=== PATIENT | female | born 1950 | race Caucasian/White ===

== ENCOUNTER → 2024-05-10 | Outpatient (CLI) | payer MEDICARE, SELFPAY ==
[2024-05-10 10:56] LABS: Glucose Estimated Average 111 mg/dL (80-131); Hemoglobin A1C 5.5 % Hgb (4.8-6.0)
[2024-05-10 11:19] LABS: Alanine Aminotransferase 20 U/L (10-49); Albumin, Serum 4.5 gm/dL (3.4-4.8); Albumin/Globulin Ratio 2.3 (1.2-2.2); Alkaline Phosphatase 84 U/L (46-116); Anion Gap 4 (7-16); Aspartate Amino Transferase < 10 U/L (0-34); BUN/Creatinine Ratio 23 Ratio (12-20); Bilirubin,Total 0.3 mg/dL (0.3-1.2); Blood Urea Nitrogen 25 mg/dL (9-23); Calcium 9.8 mg/dL (8.3-10.6); Calcium (Corrected) 9.8 mg/dL (8.5-10.1); Carbon Dioxide 30.5 mMol/L (20.0-31.0); Cardiac Risk Estimate 3.3 RATIO (3.7-5.6); Chloride 104 mMol/L (98-107); Cholesterol 161 mg/dL (132-200); Creatinine (Component) 1.1 mg/dL (0.6-1.3); Glucose 106 mg/dL (74-106); HDL Cholesterol 49 mg/dL (40-60); LDL Cholesterol,Calculated 81 mg/dL (0-130); Osmolality,Calculated 280 (275-295); Potassium 4.3 mMol/L (3.4-5.1); Sodium 138 mMol/L (136-145); Total Protein 6.5 gm/dL (5.7-8.2); Triglycerides 155 mg/dL (30-150); eGFR 53 See Note
== END | disposition home or self-care (01) ==
LOC: COPL 09:08
PROVIDERS: PCP Family Medicine; Referring Provider Family Medicine; Visit Provider Family Medicine
DX: E11.9 Type 2 diabetes mellitus without complications (principal); E78.2 Mixed hyperlipidemia; I10 Essential (primary) hypertension
CPT/HCPCS: 36415; 80053; 80061; 83036

== ENCOUNTER → 2024-08-10 | Outpatient (CLI) | payer MEDICARE, SELFPAY ==
--- NOTE | 2024-08-10 11:04 | XR_ITS ---
Examination: Wrist, right 3 views Technique: Wrist AP, oblique, lateral 3 views Date and time of exam: August 10, 2024 1109 hours INDICATIONS: Right wrist pain beginning 6 months ago no trauma FINDINGS: Significant osteopenia Old bone densities at the ulnar styloid tip No acute fracture 3 mm cyst in the distal navicular Mild narrowing radiocarpal intercarpal and carpometacarpal joints No erosive arthritis IMPRESSION: Old fractures off the ulnar styloid tip No acute fracture Mild narrowing radiocarpal, intercarpal and carpometacarpal joints
--- NOTE | 2024-08-10 11:04 | XR_ITS ---
Examination: Hand, right 3 views Technique: Hand AP, oblique, lateral 3 views Date and time of exam: August 10, 2024 1109 hours INDICATIONS: Right hand first digit pain 6 months FINDINGS: Significant osteopenia Mild diffuse narrowing joints of the wrist and hand Mild osteoarthritis first carpometacarpal joint first metacarpophalangeal joint and interphalangeal joint first digit No fracture No cortical bone destruction or erosive arthritis Small old fractures off the ulnar styloid tip IMPRESSION: Mild osteoarthritis first digit
== END | disposition home or self-care (01) ==
DX: M25.831 Other specified joint disorders, right wrist (principal); M19.041 Primary osteoarthritis, right hand; Z87.81 Personal history of (healed) traumatic fracture
CPT/HCPCS: 73110; 73130

== ENCOUNTER → 2024-09-08 | Outpatient (CLI) | payer MEDICARE, SELFPAY ==
[2024-09-08 10:03] LABS: Collection Type, Urine Clean Catch
[2024-09-08 10:20] LABS: Basophils # (Auto) 0.1 Thou/mm3 (0.0-0.2); Basophils % (Auto) 1 % (0-2.5); Eosinophils # (Auto) 0.3 Thou/mm3 (0.0-0.5); Eosinophils % (Auto) 3 % (0-10); Hematocrit 30.4 % (36.0-46.0); Hemoglobin 9.8 g/dL (12.0-16.0); Immature Granulocytes % (Auto) 0 % (0-0); Immature Granulocytes Auto 0.03 Thou/mm3 (0.00-0.00); Lymphocytes % (Auto) 11 % (10-50); Mean Corpuscular HGB Conc 32.2 g/dl (31.0-37.0); Mean Corpuscular Hemoglobin 30.7 pg (25.0-35.0); Mean Corpuscular Volume 95 fL (80-100); Monocytes # (Auto) 0.7 Thou/mm3 (0.0-0.8); Monocytes % (Auto) 8 % (0-12); Neutrophils % (Auto) 77 % (37-80); Nucleated Red Blood Cell % 0 /100 WBC (0); Platelet Count 359 Thou/mm3 (140-440); RDW Standard Deviation 43.8 fL (36.4-46.3); Red Blood Count 3.19 Miln/mm3 (4.00-5.20)
[2024-09-08 10:28] LABS: Bilirubin,Urine Negative (Negative); Blood,Urine Negative (Negative); Clarity,Urine Clear (Clear/Hazy); Color,Urine Yellow (Lt Yel-Yel); Glucose, Urine Negative (Negative); Ketones,Urine Negative (Negative); Leukocyte Esterase,Urine Negative (Negative); Nitrite,Urine Negative (Negative); PH,Urine 6.5 (5.0-7.0); Protein,Urine Negative (Neg - Trace); RBC,Urine 2 /hpf (0-3); Specific Gravity,Urine 1.022 (1.001-1.035); Squamous Epithelial Cell,Urine 1 /hpf (0-5); Urobilinogen,Urine Negative mg/dL (0.0-1.0); WBC,Urine 2 /hpf (0-5)
[2024-09-08 10:36] LABS: Glucose Estimated Average 105 mg/dL (80-131); Hemoglobin A1C 5.3 % Hgb (4.8-6.0)
[2024-09-08 10:41] LABS: Creatinine MALB Rnd Ur 120 mg/dL (30-125); Microalbumin, Random Urine < 3 mg/L (0-300)
[2024-09-08 10:45] LABS: Alanine Aminotransferase 13 U/L (10-49); Albumin, Serum 3.9 gm/dL (3.4-4.8); Alkaline Phosphatase 57 U/L (46-116); Anion Gap 7 (7-16); Aspartate Amino Transferase 12 U/L (0-34); BUN/Creatinine Ratio 15 Ratio (12-20); Bilirubin,Total 0.3 mg/dL (0.3-1.2); Blood Urea Nitrogen 15 mg/dL (9-23); Calcium 9.2 mg/dL (8.3-10.6); Calcium (Corrected) 9.3 mg/dL (8.5-10.1); Carbon Dioxide 31.7 mMol/L (20.0-31.0); Cardiac Risk Estimate 2.6 RATIO (3.7-5.6); Chloride 102 mMol/L (98-107); Cholesterol 119 mg/dL (132-200); Glucose 98 mg/dL (74-106); HDL Cholesterol 46 mg/dL (40-60); LDL Cholesterol,Calculated 47 mg/dL (0-130); Osmolality,Calculated 282 (275-295); Sodium 141 mMol/L (136-145); Thyroid Stimulating Hormone 3.07 uIU/mL (0.55-4.78); Total Protein 5.9 gm/dL (5.7-8.2); Triglycerides 130 mg/dL (30-150); eGFR 59 See Note
== END | disposition home or self-care (01) ==
LOC: COPL 09:12
PROVIDERS: PCP Family Medicine; Referring Provider Specialist; Visit Provider Specialist
DX: Z00.00 Encounter for general adult medical examination without abnormal findings (principal); E11.22 Type 2 diabetes mellitus with diabetic chronic kidney disease; N18.31 Chronic kidney disease, stage 3a; I10 Essential (primary) hypertension; E78.2 Mixed hyperlipidemia
CPT/HCPCS: 36415; 80053; 80061; 81001; 82043; 82570; 83036; 84443; 85025

== ENCOUNTER 2024-09-13 09:55 | Day surgery (SDC) | payer MEDICARE, SELFPAY ==
[2024-09-12 12:10] VITALS: BMI 36.5
[2024-09-13] VITALS (14 sets, daily range): BP systolic 144–238; BP diastolic 58–135; PULSE 70–112; RESP 14–20; TEMP 36.6–36.7; O2SAT 96–100; BMI 37.0
[2024-09-13] MEDS: SODIUM CHLORIDE 0.9% 500 ML 500 ML 20 ML IV (11:25)
[2024-09-13] MEDS: DiphenhydrAMINE INJ 50 MG/ML VIAL 25 MG IV (11:30)
[2024-09-13] MEDS: fentaNYL CIT INJ 50 mCg/ML AMP 2ML (ASD USE ONLY) IV (11:34)
[2024-09-13] MEDS: hydrALAZINE INJ 20 MG/ML VIAL 10 MG IV ×2 (11:38→11:44)
[2024-09-13] MEDS: MEPERIDINE INJ 25 MG/ML VIAL (ASD USE ONLY) 50 MG IV (11:47)
[2024-09-13] MEDS: MIDAZOLAM INJ 1 MG/ML VIAL 2 ML (ASD USE ONLY) 2 MG IV (11:47)
== END 2024-09-13 12:40 | disposition home or self-care (01) ==
PROVIDERS: PCP Family Medicine; Referring Provider Specialist; Visit Provider Specialist
PROC: 0DBE8ZX Excision of Large Intestine, Via Natural or Artificial Opening Endoscopic, Diagnostic (ICD-10-PCS; CPT 45380; principal; 2024-09-13 10:30)
PROC: (CPT 43239; 2024-09-13 10:30)
DX: K64.9 Unspecified hemorrhoids (principal); K57.30 Diverticulosis of large intestine without perforation or abscess without bleeding
CPT/HCPCS: 45378; A4649; C1769; J0360; J1200; J2175; J2250; J3010; J7040

== ENCOUNTER 2025-02-02 22:46 | Inpatient (IN) | payer MEDICARE, SELFPAY ==
[2025-02-02 22:48] VITALS: BMI 33.9
--- NOTE | 2025-02-02 22:57 | EKG_ITS ---
[facility] Test Date: 2025-02-02 Pat Name: SUSSY LOCKHART Department: Room: - Gender: Female Clinical Documentation Consultant: : 1950 Requested By: ED Temporary Provider Order Number: [id number] Reading MD: ED Temporary Provider Measurements Intervals [place] Rate: 62 P: 37 ID: [id number] QRS: 13 QRSD: 86 T: 38 QT: 421 QTc: 429 Interpretive Statements SINUS RHYTHM POSSIBLE ANTERIOR MYOCARDIAL INFARCTION , PROBABLY OLD [30 ms Q WAVE IN V3/V4, OR R < 0.2 mV IN V4] No previous ECG available for comparison /store/S0/[id number]
[2025-02-02 23:09] VITALS: BP 190/96; BP 199/95; PULSE 63; RESP 23; TEMP 36.6; O2SAT 99
--- NOTE | 2025-02-02 23:17 | XR_ITS ---
Examination: AP chest single view TECHNIQUE: AP portable upright chest single view Date and time: February 02, 2025 11:44 PM, comparison March 31, 2016 INDICATIONS: Chest pain and shortness of breath today FINDINGS: Minimal prominence left ventricle No pneumonia or pulmonary edema The osseous structures are intact Minimal subsegmental atelectasis left lower lung zone IMPRESSION: No active disease
--- NOTE | 2025-02-02 23:18 | PD.EDRME ---
Rapid Medical Screening Exam E Arrival date/time: 02/02/25 22:46 74F with history of HTN presents to ED with 1 day of N/V and chest pressure. Patient states this doesn't feel like heart burn. Chief Complaint: Chest Pain Vital signs: Vital Signs Temperature 97.8 F 02/02/25 23:09 Pulse Rate 63 02/02/25 23:09 Respiratory Rate 23 H 02/02/25 23:09 Blood Pressure 190/96 H 02/02/25 23:09 Pulse Oximetry (%) 99 02/02/25 23:09 Oxygen Delivery Method Room Air 02/02/25 23:09
[2025-02-02 23:39] VITALS: BP 218/70; PULSE 63; RESP 16; TEMP 36.6; O2SAT 97
--- NOTE | 2025-02-02 23:43 | PD.EDCHEST ---
ED Chest Pain RME/HPI General Chief Complaint: Chest Pain Stated Complaint: NAUSEA CHEST TIGHTNESS Time Seen by Provider: 02/02/25 23:35 Arrival date/time: 02/02/25 22:46 RME / HPI RME / HPI narrative: 02/02/25 22:46 74F with history of HTN presents to ED with 1 day of N/V and chest pressure. Patient states this doesn't feel like heart burn. DR. WILCOX MAIN ED EVALUATION: 74 y/o female with Hx of HTN and GERD presents to ED c/o chest tightness just below the rib area and nausea x 12 hours. Denies vomiting. Patient also missed her dose of Metoprolol tonight. No other concerns or complaints expressed at this time. Related Data Home Medications ?Medication ?Instructions ?Recorded ?Confirmed metoprolol succinate 100 mg 100 mg PO QDAY ##0 03/26/14 09/13/24 tablet,extended release 24 hr (Toprol XL) simvastatin 40 mg tablet (Zocor) 20 mg PO HS #0 tabs 03/26/14 09/13/24 famotidine 20 mg tablet (Pepcid) 20 mg PO BID #0 tabs 09/28/16 09/13/24 hydrochlorothiazide 25 mg tablet 25 mg PO QAM #0 tabs 09/28/16 09/13/24 losartan 50 mg tablet 50 mg PO QDAY 11/17/23 09/13/24 amitriptyline 25 mg tablet 25 mg PO QPM 09/13/24 09/13/24 Allergies Allergy/AdvReac Type Severity Reaction Status Date / Time amoxicillin AdvReac Mild Nausea/Vomi Verified 02/02/25 22:56 tiing clavulanic acid AdvReac Mild Nausea/Vomi Verified 02/02/25 22:56 tiing Review of Systems Review of Systems Systems Reviewed: All systems reviewed, normal except as documented Past Medical History Past Medical History CARDIAC: Positive Cardiac Disorders, Hypercholesterolemia and Hypertension RESPIRATORY: Positive Sleep Apnea (NO CPAP RX AT THIS TIME) GASTROINTESTINAL: Positive Gastrointestinal Disorders (DYSPHAGIA) and Gastroesophageal Reflux Disease REPRODUCTIVE: Positive Previous Pregnancies MUSCULOSKELETAL: Positive Musculoskeletal Disorders (CARPAL TUNNEL IN THE PAST) and Carpal Tunnel Syndrome (bilat) ENT: Positive Cataracts ([place]) ENDOCRINE: Positive Diabetes Mellitus Type 2 (PREDIABETES. NO MEDS) HEMATOLOGIC: Positive Blood Disorders and Anemia (takes iron) OTHER HISTORY: Positive Measles and Mumps Surgical History SURGICAL: Positive Eye Surgery (Blethoplasty), Tonsillectomy and Adenoidectomy Social History SMOKING STATUS: Never smoker ED Exam Narrative Physical exam: Generally patient is alert in mild distress secondary to her chest pain, heart regular rate and rhythm, lungs clear to auscultation equal bilaterally, abdomen soft bowel sounds present's and nontender no pulsatile abdominal mass, extremities show no edema, skin is warm pale and dry, neurologic exam no focal motor or sensory deficits cranial nerves II through XII grossly intact Course Course Course Narrative: CXR is ordered for determining the etiology of shortness of breath. Quality Measures none Orders Category Date Time Status EKG (ED ONLY) *Do not use* NOW Care 02/02/25 22:57 Completed EKG (ED ONLY) *Do not use* NOW Care 02/03/25 02:10 Completed Notify provider NOW Care 02/03/25 02:02 Active EKG (ED Only) Stat Exams 02/02/25 22:57 Draft EKG (ED Only) Stat Exams 02/03/25 02:10 Draft XR chest 1V portable Stat Exams 02/02/25 23:17 Completed B-Type Natriuretic Peptide Stat Lab 02/02/25 23:39 Completed CBC Stat Lab 02/02/25 23:39 Completed Comprehensive Metabolic Panel Stat Lab 02/02/25 23:39 Completed Magnesium Stat Lab 02/02/25 23:39 Completed Partial Thromboplastin Time AM DRAW Lab 02/05/25 05:00 Ordered Partial Thromboplastin Time Stat Lab 02/02/25 23:39 Completed Prothrombin Time with INR AM DRAW Lab 02/05/25 05:00 Ordered Prothrombin Time with INR Stat Lab 02/02/25 23:39 Completed Troponin I Stat Lab 02/02/25 23:39 Completed Troponin I Stat Lab 02/03/25 01:18 Completed Aspirin Med 02/02/25 23:17 Discontinued 325 mg PO X1 ONE Heparin Inj Med 02/03/25 02:02 Discontinued 4,000 unit IV X1 ONE Heparin/D5w 25K 250 ML Ivpb [Heparin in D5w Ivpb] Med 02/03/25 02:15 Active 25,000 unit in 250 ml IV 10.81 units/kg/hr Nitroglycerin [Nitrostat 1/150] Med 02/02/25 23:17 Active 0.4 mg SL Q5MIN PRN Ondansetron Inj [Zofran Inj] Med 02/02/25 23:44 Discontinued 4 mg IVP X1 ONE Ondansetron Inj [Zofran Inj] Med 02/03/25 00:36 Discontinued 4 mg IVP X1 ONE Sodium Chloride 0.9% 1000 ml [Ns] 1,000 ml Med 02/02/25 23:45 Discontinued IV 999 mls/hr hydrALAZINE INJ [Apresoline Inj] Med 02/02/25 23:43 Discontinued 10 mg IVP X1 ONE Vital Signs Vital signs: Vital Signs Temperature 97.8 F 02/02/25 23:09 Pulse Rate 63 02/02/25 23:09 Respiratory Rate 23 H 02/02/25 23:09 Blood Pressure 190/96 H 02/02/25 23:09 Pulse Oximetry (%) 99 02/02/25 23:09 Oxygen Delivery Method Room Air 02/02/25 23:09 Chest Pain MDM Narrative MDM Narrative:: Scribe Attestation: Mary Kay Pettit am scribing for and in the presence of Dr. Wilcox. Provider Notation: Although this document has been carefully reviewed, there may still be some phonetic and other typographical errors.? These errors are purely grammatical due to imperfections in the software program and should not be construed in any way to? compromise the substance of the patient's medical care during this visit. I interpreted all labs. First troponin was elevated at 0.3 and second troponin was elevated at 0.6. EKG #1 obtained at 11:06 PM shows normal sinus rhythm at rate of 62 with poor R wave progression in the precordial leads without ST segment change or T wave inversion. EKG #2 obtained at 2:16 AM shows normal sinus rhythm at a rate of 70 with poor R wave progression in the precordial leads without ST segment change or T wave inversion. Patient arrives hypertensive with a systolic blood pressure 218. Patient received hydralazine 10 mg IV which helped decrease systolic blood pressure to 190. Patient received nitroglycerin for chest pain with minimal relief. She also received aspirin 325 mg p.o. Because of the chest pain and the increasing troponins the patient will be diagnosed with a non-STEMI based on the EKGs. She will be bolused with heparin and started on a heparin drip. I have called legal records manager Dr. Cmumins at phone number [phone] and left a message that I need his consultation for this non-STEMI. I have also discussed this case with the hospitalist and the patient will be admitted to the hospital for further treatment and evaluation. Critical care time spent in this patient excluding other billable procedures was 35 minutes. Patient data External records reviewed:: [facility] previous records (No recent ED records available for review.) Clinical information provided by:: patient Social determinants that could affect healthcare access:: none Patient has the following chronic illnesses:: Hypercholesterolemia, Hypertension, Sleep Apnea, Dysphagia, Gastroesophageal Reflux Disease, Carpal Tunnel Syndrome, Cataracts, Anemia How is presenting disease/condition affected by chronic disease/condition?: exacerbated by Evaluation data The following diagnostics were reviewed and interpreted by me:: lab results, radiology exam(s) and EKG tracing(s) Lab and/or radiology exams considered but not ordered:: None Interpretation Summary: RADIOLOGY Chest X-Ray: FINDINGS: Minimal prominence left ventricle No pneumonia or pulmonary edema The osseous structures are intact Minimal subsegmental atelectasis left lower lung zone IMPRESSION: No active disease Medications / Prescriptions Medications or Prescriptions considered but not ordered:: None Medication administrations:: Medication Administration History Heparin Sodium/Dextrose (Heparin In D5w Ivpb) 25,000 unit in 250 mls @ 10.003 mls/hr IV .Q24H [facility]; Protocol Stop: 02/17/25 02:14 Nitroglycerin (Nitroglycerin 0.4 Mg Subl Btl #25) 0.4 mg SL Q5MIN PRN PRN Reason: CHEST PAIN Last Admin: 02/03/25 01:06 Dose: 0.4 1000units Documented By: ROLA Discontinued Medications Aspirin (Aspirin 325 Mg Tablet) 325 mg PO X1 ONE Stop: 02/02/25 23:18 Last Admin: 02/03/25 00:49 Dose: 325 mg Documented By: ROLA Heparin Sodium (Porcine) (Heparin Sod Inj 5000 Unit/Ml Vial) 4,000 unit IV X1 ONE; Protocol Stop: 02/03/25 02:03 Hydralazine HCl (Hydralazine Inj 20 Mg/Ml Vial) 10 mg IVP X1 ONE Stop: 02/02/25 23:44 Last Admin: 02/03/25 00:08 Dose: 10 mg Documented By: ROLA Sodium Chloride (Ns) 1,000 mls @ 999 mls/hr IV .Q1H1M ONE Stop: 02/03/25 00:45 Last Infusion: 02/03/25 01:12 Dose: Infused Documented By: Admin: 02/03/25 00:11 Dose: 999 mls/hr Documented By: MM Ondansetron HCl (Ondansetron Inj 2 Mg/Ml Inj 2 Ml) 4 mg IVP X1 ONE; Protocol Stop: 02/02/25 23:45 Last Admin: 02/03/25 00:06 Dose: 4 mg Documented By: ROLA Ondansetron HCl (Ondansetron Inj 2 Mg/Ml Inj 2 Ml) 4 mg IVP X1 ONE; Protocol Stop: 02/03/25 00:37 Last Admin: 02/03/25 00:46 Dose: 4 mg Documented By: ROLA See above Consultations Consultation(s) initiated? (list below): Yes Diagnosis Chest Pain Differential Diagnosis: fracture of rib, pneumothorax, stable angina, unstable angina pectoris, atypical chest pain, st elevation myocardial infarction, costochondritis, chest pain and biliary colic Most likely diagnosis given after review of the tests above:: Non-STEMI Admission Indicated Admission indicated?: indicated Admission Request Was there a request for admission?: Yes Admission Attestation Admission request attestation: Discussed case with [] from Hospitalist service regarding admission. Discussed patients ED course, exam findings, labs, and radiology results. The Hospitalist [agrees,declines] to accept the patient for admission. Disposition Plan Disposition Plan: Admit Critical Care Time Critical Care Time Total Critical Care Time (min.): 35 Attestation: Excluding other billable procedures Discharge Plan Plan Patient Disposition: Admit Acute Care w/in Hospital Prescriptions/Referrals Prescriptions/Med Rec: No Action metoprolol succinate [Toprol XL] 100 MG tablet extended release 24 hr 100 mg PO QDAY Qty: 0 simvastatin [Zocor] 40 MG tablet 20 mg PO HS Qty: 0 famotidine [Pepcid] 20 MG tablet 20 mg PO BID Qty: 0 Patient Comments: TO SUPPRESS GASTRIC ACID SECRETION hydrochlorothiazide 25 MG tablet 25 mg PO QAM Qty: 0 amitriptyline 25 mg tablet 25 mg PO QPM Patient Comments: TAKE 1 TABLET BY MOUTH AT BEDTIME losartan 50 mg tablet 50 mg PO QDAY Patient Comments: TAKE 1 TABLET BY MOUTH ONCE DAILY FOR HIGH BLOOD PRESSURE Problem List Clinical Impression: Non-ST elevated myocardial infarction (non-STEMI), Poorly-controlled hypertension Patient/Caregiver Discharge Instructions Print Language: [place]an Stand Alone Forms: [employer] Award Info., Patient Portal Info Letter
[2025-02-02 23:52] LABS: Basophils # (Auto) 0.1 Thou/mm3 (0.0-0.2); Basophils % (Auto) 0 % (0-2.5); Eosinophils # (Auto) 0.0 Thou/mm3 (0.0-0.5); Eosinophils % (Auto) 0 % (0-10); Hematocrit 33.8 % (36.0-46.0); Hemoglobin 10.9 g/dL (12.0-16.0); Immature Granulocytes Auto 0.07 Thou/mm3 (0.00-0.00); Lymphocytes # (Auto) 0.7 Thou/mm3 (1.0-4.8); Lymphocytes % (Auto) 4 % (10-50); Mean Corpuscular HGB Conc 32.2 g/dl (31.0-37.0); Mean Corpuscular Hemoglobin 30.3 pg (25.0-35.0); Mean Corpuscular Volume 94 fL (80-100); Monocytes # (Auto) 0.5 Thou/mm3 (0.0-0.8); Monocytes % (Auto) 3 % (0-12); Neutrophils # (Auto) 15.9 Thou/mm3 (1.8-7.7); Neutrophils % (Auto) 92 % (37-80); Nucleated Red Blood Cell # 0.00 Thou/mm3 (0.00-0.00); Nucleated Red Blood Cell % 0 /100 WBC (0); Platelet Count 467 Thou/mm3 (140-440); RDW Standard Deviation 45.0 fL (36.4-46.3); Red Blood Count 3.60 Miln/mm3 (4.00-5.20); White Blood Count 17.2 Thou/mm3 (3.6-11.0)
[2025-02-03] VITALS (16 sets, daily range): BP systolic 120–195; BP diastolic 55–84; PULSE 66–82; RESP 14–26; TEMP 36.3–37.1; O2SAT 95–100; BMI 37.2; BMI 37.3
[2025-02-03 00:04] LABS: INR 0.9 (0.9-1.3); Partial Thromboplastin Time 23.6 Seconds (22.0-36.0); Prothrombin Time 10.4 Seconds (9.0-12.2)
[2025-02-03] MEDS: ONDANSETRON INJ 2 MG/ML INJ 2 ML 4 MG IVP ×3 (00:06→09:44)
[2025-02-03] MEDS: hydrALAZINE INJ 20 MG/ML VIAL 10 MG IVP ×2 (00:08→10:59)
[2025-02-03] MEDS: SODIUM CHLORIDE 0.9% 1000 ML 1,000 ML 999 ML IV (00:11)
[2025-02-03 00:17] LABS: B-Type Natriuretic Peptide 236 pg/mL (0-100)
[2025-02-03 00:24] LABS: Alanine Aminotransferase < 7 U/L (10-49); Albumin, Serum 4.4 gm/dL (3.4-4.8); Albumin/Globulin Ratio 2.2 (1.2-2.2); Alkaline Phosphatase 77 U/L (46-116); Anion Gap 12 (7-16); Aspartate Amino Transferase 13 U/L (0-34); BUN/Creatinine Ratio 18 Ratio (12-20); Bilirubin,Total 0.3 mg/dL (0.3-1.2); Blood Urea Nitrogen 18 mg/dL (9-23); Calcium 10.2 mg/dL (8.3-10.6); Calcium (Corrected) 10.2 mg/dL (8.5-10.1); Carbon Dioxide 28.0 mMol/L (20.0-31.0); Chloride 98 mMol/L (98-107); Creatinine (Component) 1.0 mg/dL (0.6-1.3); Estimated Creatinine Clearance 55.5 mL/min (>60); Globulin 2.0 gm/dL (2.3-3.5); Glucose 126 mg/dL (74-106); Magnesium 1.7 mg/dL (1.6-2.6); Osmolality,Calculated 279 (275-295); Potassium 3.8 mMol/L (3.4-5.1); Sodium 138 mMol/L (136-145); Total Protein 6.4 gm/dL (5.7-8.2); eGFR 59 See Note
[2025-02-03 00:29] LABS: Troponin I 0.300 ng/mL (0.0-0.045)
[2025-02-03] MEDS: NITROGLYCERIN 0.4 MG SUBL BTL #25 SL (01:06)
[2025-02-03 01:54] LABS: Troponin I 0.615 ng/mL (0.0-0.045)
--- NOTE | 2025-02-03 02:10 | EKG_ITS ---
[facility] Test Date: 2025-02-03 Pat Name: SUSSY LOCKHART Department: Room: - Gender: Female Deaf/Hard Of Hearing Specialist: : 1950 Requested By: Vamsi Moy Order Number: [id number] Reading MD: Vamsi Moy Measurements Intervals [place] Rate: 70 P: 43 DC: 186 QRS: 20 QRSD: 89 T: 39 QT: 433 QTc: 467 Interpretive Statements SINUS RHYTHM WITH OCCASIONAL SUPRAVENTRICULAR PREMATURE COMPLEXES LOW QRS VOLTAGE IN PRECORDIAL LEADS [QRS DEFLECTION < 1.0 mV IN CHEST LEADS] POSSIBLE ANTERIOR MYOCARDIAL INFARCTION , PROBABLY OLD [30 ms Q WAVE IN V3/V4, OR R < 0.2 mV IN V4] Compared to ECG 02/02/2025 23:06:20 Low QRS voltage now present Myocardial infarct finding still present /store/S0/[id number]
[2025-02-03] MEDS: MORPHINE SULF INJ 10 MG/ML VIAL 4 MG IVP (02:35)
[2025-02-03] MEDS: HEPARIN SOD INJ 5000 UNIT/ML VIAL 4000 UNIT IV (02:37)
[2025-02-03] MEDS: Heparin/D5w 25K 250 ML Ivpb 25,000 UNIT/250 ML BAG 10.003 UNIT IV (02:41)
--- NOTE | 2025-02-03 03:43 | ESHP_ITS ---
<Statement entered by Dylan Kaye MD - 02/03/25 07:53> I have discussed and was present for the essential components of the history, physical examination, diagnosis, and treatment plan with the resident. I agree with the patient's care as documented by the resident and amended herein by me. Dylan Kaye MD FACP. Documentation for date of: 02/03/25 HPI History of Present Illness History of present illness: CC: Chest Pain Patient is a 74-year-old female with a past medical history of hypertension, hyperlipidemia, and GERD who presented to the emergency room chief complaint of chest pain 02/02/2025. Patient stated chest pain started as chest pressure at the sternal region nonradiating, then progressed to tightness that is a dull ache. Pain is constant occurring at rest and with exertion. Patient denied pleuritic pain. Denied MSK pain. Patient also noted to have a systolic blood pressure 192 after checking her blood pressure. Patient stated she had already taken her hydrochlorothiazide and losartan for that day. Patient also complaining of clammy feeling. Single episode of emesis that was transparent in the ER approximately 240 cc. Patient denied previous chest pressure. Not the same feeling as GERD. Patient denied any recent sick contacts. Patient denied chills or fevers. Denied diarrhea or abdominal tenderness patient denied dysuria or increased frequency. Never smoker. No illicit drug use. Denied cardiac history. Mild improvement with morphine. ER Course: Vitals: 190/96, HR 63 RR 23 on room air CBC 17.2, hemoglobin 10.9, hematocrit 33.8, MCV 94, platelets 467 (high) INR 0.9 CMP Na 138 Na 3.8 Chloride 98, bicarb 28.0, BUN 18, Cr 1.0 GFR 59 Ca 10.2 (H) Mg 1.7 0.300, 0.615 BNP [address] Elevation, no specic R changes Chest X-ray: No acitve disease Zofran, hydralazine 10 mg IVX1, NS bolus X 1, Asprin 325 mg, Nitroglyceirn 0.4 mg sl, Heparin drip PMH: hypertension, hyperlipidemia, esophageal strictures, and GERD Medication: Amitriptyline 25 mg PO HS (for headaches by Dr. Canales), Famotidien, Hydrocholorothiazide, Losartan 50 mg qday, Metoprolol Succinate 100 mg PO, Simvastatin 40 mg PO HS Surgeries: Carpal tunnel surgery Tonsillectomy, Facial Radiation secondary to squamous cell cancer Allerigies: grass/pollen Social: denied alcohol use, never smoker, denied illicit drug use Family History: Mother Stroke X 2 and Father Parkinson Disease Patient is being admitted for chest pain and Troponemia. Review of Systems Review of Systems Narrative Review of Systems: General appearance: YES Headache, NO weight change, NO fatigue, NO weakness, NO fever, NO chills, NO night sweats, No cough Skin: NO rash, NO itching, NO sores, NO moles HEENT: NO Trauma, NO nausea, NO vomiting, NO visual changes, NO blurry vision, NO double vision, NO tinnitus, NO vertigo, NO ear discharge, NO rhinorrhea, NO stuffiness, NO sneezing, NO allergy, NO epistaxis. NO Hoarseness, NO sore throat, NO swollen neck. Cardiac: Yes CHEST Pain, NO Palpitations, NO dyspnea on exertion, NO orthopnea, NO paroxysmal nocturnal dyspnea, NO edema Respiratory: NO Shortness of Breath, NO Wheezing, NO Cough, NO Sputum, NO hemoptysis GI:NO appetite, NO nausea, NO vomiting, NO dysphagia, NO changes in bowel frequency, NO stool color, NO diarrhea, NO constipation, NO hemetemesis, NO hemorrhoids, NO melena, NO hematechezia, NO abdominal pain, NO jaundice Renal: NO frequency, NO hesitancy, NO urgency, NO hematuria, NO nocturia, NO incontinence MSK: NO muscle weakness, NO gout, NO arthritis, NO muscle stiffness Neuro: NO headaches, NO tremors, NO weakness, NO paralysis, NO seizures, NO loss of consciousness, NO numbness. Hem: NO anemia, NO easy bruising/bleeding, NO petechiae, NO purpura Endo: NO heat/cold intolerance, NO excessive sweating, NO polyuria, NO polydipsia, NO polyphagia, NO thyroid problems, NO diabetes Pysch: NO mood, NO anxiety, NO depression Exam Vital Signs Temp Pulse Resp BP Pulse Ox O2 Del Method 98.8 F 68 15 166/64 H 100 Room Air 02/03/25 01:02/03/25 01:02/03/25 01:02/03/25 01:02/03/25 01:02/03/25 01:29 Narrative Exam General Appearance: Alert & Oriented X3, well-nourished female who is lying in bed in mild distress HEENT: Skull symmetrical and atraumatic. Conjunctivae pin and moist. Pupils equal, round, reactive to light and accommodation (PERRL). External ear without lesion or discharge. Straight, nares patient, mucosa pink, no discharge. No thyroid nodule appreciated. No cervical lymphadenopathy. Cardio: Normal Rate and Rhythm with S1 and S2 heart sounds. No murmurs or extra heart sounds auscultated. No bruits on carotid auscultation. No peripheral edema or cyanosis. Lungs: Symmetric with good expansion. Chest and back non-tender. Breath sounds vesicular without crackles, wheezing or rhonchi Abdomen: Non-tender, Non-distended, Normal Reactive Bowel Sounds Neuro: Alert, cooperative, oriented to person, place, and time. Speech clear. CN grossly intact. Upper motor strength 5/5 and Lower motor strength 5/5. Sensation intact. Results: Labs 02/02/25 23:39 02/02/25 23:39 Labs: Short CBC 02/02/25 Range/Units 23:39 WBC 17.2 H (3.6-11.0) Thou/mm3 Hgb 10.9 L (12.0-16.0) g/dL Hct 33.8 L (36.0-46.0) % Plt Count 467 H (140-440) Thou/mm3 BMP 02/02/25 23:39 Sodium 138 Potassium 3.8 Chloride 98 Carbon Dioxide 28.0 BUN 18 Creatinine 1.0 Glucose 126 H Calcium 10.2 Cardiac Enzymes 02/02/25 02/03/25 Range/Units 23:39 01:18 Troponin I 0.300 H* 0.615 H* D (0.0-0.045) ng/mL Liver Function 02/02/25 Range/Units 23:39 Total Bilirubin 0.3 (0.3-1.2) mg/dL AST 13 (0-34) U/L ALT < 7 L (10-49) U/L Alkaline Phosphatase 77 (46-116) U/L Albumin 4.4 (3.4-4.8) gm/dL Quality Measures Quality Measures none Advance care planning discussed with:: patient Medications Home Medications and Allergies Home Medications ?Medication ?Instructions ?Recorded ?Confirmed ?Type metoprolol succinate 100 mg 100 mg PO QDAY ##0 4 09/13/24 History tablet,extended release 24 hr (Toprol XL) simvastatin 40 mg tablet (Zocor) 20 mg PO HS #0 tabs 1 09/13/24 History famotidine 20 mg tablet (Pepcid) 20 mg PO BID #0 tabs 09/28/16 09/13/24 History hydrochlorothiazide 25 mg tablet 25 mg PO QAM #0 tabs 09/28/16 09/13/24 History losartan 50 mg tablet 50 mg PO QDAY 11/17/2309/13 History amitriptyline 25 mg tablet 25 mg PO QPM 09/13/2409/13 History Allergies Allergy/AdvReac Type Severity Reaction Status Date / Time amoxicillin AdvReac Mild Nausea/Vomi Verified 02/02/25 22:56 tiing clavulanic acid AdvReac Mild Nausea/Vomi Verified 02/02/25 22:56 tiing Visit Medications Acetaminophen (Acetaminophen 325 Mg Tablet) 650 mg PO Q6H PRN PRN Reason: mild pain 1-3 or Fever >100.3 Stop: 03/05/25 03:24 Hydrocodone Bitart/Acetaminophen (Hydrocodone/Apap 5/325 Tablet) 1 tab PO Q4HR PRN PRN Reason: PAIN SCALE 4-6 (Moderate Stop: 02/08/25 03:24 Aspirin (Aspirin Ec 81 Mg Tabec) 81 mg PO QDAY [facility] Stop: 03/05/25 08:59 Atorvastatin Calcium (Atorvastatin Calcium 20 Mg Tablet) 80 mg PO HS [facility] Stop: 03/05/25 03:34 Heparin Sodium/Dextrose (Heparin In D5w Ivpb) 25,000 unit in 250 mls @ 10.003 mls/hr IV .Q24H [facility]; Protocol Stop: 02/17/25 02:14 Last Admin: 02/03/25 02:41 Dose: 10.81 units/kg/hr, 10.003 mls/hr Metoprolol Succinate (Metoprolol Succinate Xl 25 Mg Tabcr) 100 mg PO QDAY [facility] Stop: 03/05/25 08:59 Morphine Sulfate (Morphine Sulf Inj 10 Mg/Ml Vial) 2 mg IVP Q4HR PRN PRN Reason: PAIN SCALE 7-10 (Severe Stop: 02/08/25 03:24 Nitroglycerin (Nitroglycerin 0.4 Mg Subl Btl #25) 0.4 mg SL Q5MIN PRN PRN Reason: CHEST PAIN Last Admin: 02/03/25 01:06 Dose: 0.4 1000units Ondansetron HCl (Ondansetron Inj 2 Mg/Ml Inj 2 Ml) 4 mg IVP Q6H PRN; Protocol PRN Reason: NAUSEA OR VOMITING Stop: 03/05/25 03:24 Sennosides (Senna Tablet) 1 tab PO QDAY [facility]ANS; Protocol Stop: 03/05/25 08:59 Discontinued Medications Aspirin (Aspirin 325 Mg Tablet) 325 mg PO X1 ONE Stop: 02/02/25 23:18 Last Admin: 02/03/25 00:49 Dose: 325 mg Heparin Sodium (Porcine) (Heparin Sod Inj 5000 Unit/Ml Vial) 4,000 unit IV X1 ONE; Protocol Stop: 02/03/25 02:03 Last Admin: 02/03/25 02:37 Dose: 4,000 unit Hydralazine HCl (Hydralazine Inj 20 Mg/Ml Vial) 10 mg IVP X1 ONE Stop: 02/02/25 23:44 Last Admin: 02/03/25 00:08 Dose: 10 mg Sodium Chloride (Ns) 1,000 mls @ 999 mls/hr IV .Q1H1M ONE Stop: 02/03/25 00:45 Last Infusion: 02/03/25 01:12 Dose: Infused Morphine Sulfate (Morphine Sulf Inj 10 Mg/Ml Vial) 4 mg IVP X1 ONE Stop: 02/03/25 02:30 Last Admin: 02/03/25 02:35 Dose: 4 mg Ondansetron HCl (Ondansetron Inj 2 Mg/Ml Inj 2 Ml) 4 mg IVP X1 ONE; Protocol Stop: 02/02/25 23:45 Last Admin: 02/03/25 00:06 Dose: 4 mg Ondansetron HCl (Ondansetron Inj 2 Mg/Ml Inj 2 Ml) 4 mg IVP X1 ONE; Protocol Stop: 02/03/25 00:37 Last Admin: 02/03/25 00:46 Dose: 4 mg Assessment & Plan Plan Patient is a 74-year-old female with a past medical history of hypertension, hyperlipidemia, and GERD who was admitted for chest pain and troponinemia. #Chest pain #Troponinemia #Hyperlipidemia Patient presented with new onset of chest pain substernal region radiate likely NSTEMI type II given hypertensive urgency versus NSTEMI type I versus ACS less likely the elevation noted x 2 EKGs vs GERD Diagnostics: EKG: No ST elevation Troponin 0.3, repeat troponin 0.615 point Plan -Heparin drip -Aspirin 81 mg daily, Morphine 2 mg every 4 hours -Nitroglycerin sublingual - Metoprolol succinate 100 mg p.o. daily -Echo - Trend troponins - A1c, lipid, mag and Phos - Consult cardiology, Dr. Cummins, appreciate recommendations - Currently n.p.o. #Hypertensive emergency #Hypertension Patient presented with hypertensive emergency with endorgan damage of elevated troponins. Patient adherent to medication, systolic blood pressure during office visits with PCP, Dr Fernando, 140. Plan - Holding losartan and hydrochlorothiazide - Resume metoprolol succinate XL 100 mg p.o. daily, AM - Consider renal ultrasound #Leukocytosis Leukocytosis noted with a WBC count of 17.2 likely reactive. No fever noted patient denied chills. Patient denied dysuria. Patient denied cough or recent sick contacts with a chest x-ray that was negative for pneumonia Plan - Continue to monitor WBC count and temperature #Hyperlipidemia Patient has a past medical history of hyperlipidemia and home medication of simvastatin 40 mg p.o. at bedtime. Plan -Start atorvastatin 80 mg p.o. at bedtime given troponinemia - Holding simvastatin 2 mg p.o. at bedtime home medication - Lipid panel in a.m. #Normocytic anemia Anemia noted previous labs, hemoglobin ranging from 11-9.6. Denies shortness of breath. Denied alysia blood. Plan - No acute intervention - Consider B12, folate, iron panel #Headaches Patient has a past medical history of headaches that started on amitriptyline. Plan -Holding off amitriptyline until medication conciliation Health Maintenance: Disp: Pt is currently admitted to floors for further management of chest pain and hypertensive urgency, awaiting cardiology consult and echo FEN: NPO DVT: heparin drip Code: Full code - The patient's plan was discussed with attending Dr. Vargas Reyes MD PGY2 Internal Medicine
[2025-02-03] MEDS: Magnesium Sulfate 2 GM Ivpb 2 GM/50 ML BAG IV (04:45)
[2025-02-03] MEDS: ATORVASTATIN CALCIUM 20 MG TABLET 80 MG PO ×2 (05:01→20:09)
[2025-02-03 05:08] LABS: Basophils # (Auto) 0.0 Thou/mm3 (0.0-0.2); Basophils % (Auto) 0 % (0-2.5); Eosinophils # (Auto) 0.0 Thou/mm3 (0.0-0.5); Eosinophils % (Auto) 0 % (0-10); Hematocrit 33.2 % (36.0-46.0); Hemoglobin 10.7 g/dL (12.0-16.0); Immature Granulocytes Auto 0.10 Thou/mm3 (0.00-0.00); Lymphocytes # (Auto) 0.7 Thou/mm3 (1.0-4.8); Lymphocytes % (Auto) 4 % (10-50); Mean Corpuscular HGB Conc 32.2 g/dl (31.0-37.0); Mean Corpuscular Hemoglobin 30.1 pg (25.0-35.0); Mean Corpuscular Volume 93 fL (80-100); Monocytes # (Auto) 0.5 Thou/mm3 (0.0-0.8); Monocytes % (Auto) 3 % (0-12); Neutrophils # (Auto) 17.2 Thou/mm3 (1.8-7.7); Neutrophils % (Auto) 93 % (37-80); Nucleated Red Blood Cell # 0.00 Thou/mm3 (0.00-0.00); Nucleated Red Blood Cell % 0 /100 WBC (0); Platelet Count 380 Thou/mm3 (140-440); RDW Standard Deviation 44.8 fL (36.4-46.3); Red Blood Count 3.56 Miln/mm3 (4.00-5.20); White Blood Count 18.5 Thou/mm3 (3.6-11.0)
[2025-02-03 05:24] LABS: Alcohol, Urine Negative (Negative); Amphetamine/Methamp Scrn,U Negative (Negative); Barbiturate Screen,Urine Negative (Negative); Benzodiazepines Screen,Urine Negative (Negative); Benzoylecgonine Screen, Ur Negative (Negative); Fentanyl Screen,Urine Negative (Negative); Opiate Screen,Urine Positive (Negative); THC Screen,Urine Negative (Negative)
[2025-02-03 05:39] LABS: Partial Thromboplastin Time 54.3 Seconds (22.0-36.0)
[2025-02-03 05:43] LABS: Glucose Estimated Average 117 mg/dL (80-131); Hemoglobin A1C 5.7 % Hgb (4.8-6.0)
[2025-02-03 06:02] LABS: Alanine Aminotransferase 9 U/L (10-49); Albumin, Serum 4.0 gm/dL (3.4-4.8); Albumin/Globulin Ratio 2.0 (1.2-2.2); Alkaline Phosphatase 72 U/L (46-116); Anion Gap 10 (7-16); Aspartate Amino Transferase 12 U/L (0-34); BUN/Creatinine Ratio 21 Ratio (12-20); Bilirubin,Total 0.2 mg/dL (0.3-1.2); Blood Urea Nitrogen 17 mg/dL (9-23); Calcium 9.6 mg/dL (8.3-10.6); Calcium (Corrected) 9.6 mg/dL (8.5-10.1); Carbon Dioxide 29.8 mMol/L (20.0-31.0); Cardiac Risk Estimate 3.4 RATIO (3.7-5.6); Chloride 99 mMol/L (98-107); Cholesterol 168 mg/dL (132-200); Creatinine (Component) 0.8 mg/dL (0.6-1.3); Estimated Creatinine Clearance 69.4 mL/min (>60); Globulin 2.0 gm/dL (2.3-3.5); Glucose 128 mg/dL (74-106); HDL Cholesterol 49 mg/dL (40-60); LDL Cholesterol,Calculated 96 mg/dL (0-130); Magnesium 1.2 mg/dL (1.6-2.6); Osmolality,Calculated 281 (275-295); Potassium 3.7 mMol/L (3.4-5.1); Sodium 139 mMol/L (136-145); Thyroid Stimulating Hormone 2.32 uIU/mL (0.55-4.78); Total Protein 6.0 gm/dL (5.7-8.2); Triglycerides 113 mg/dL (30-150); eGFR > 60 See Note
[2025-02-03 06:04] LABS: Troponin I 0.953 ng/mL (0.0-0.045)
[2025-02-03] MEDS: HYDROcodone/APAP 5/325 TABLET 1 TAB PO ×2 (07:28→19:13)
[2025-02-03] MEDS: ASPIRIN EC 81 MG TABEC PO (08:46)
[2025-02-03] MEDS: METOPROLOL SUCCINATE XL 25 MG TABCR 100 MG PO (08:46)
[2025-02-03] MEDS: Magnesium Sulfate 4 GM Ivpb 4 GM/50 ML BAG IV (08:46)
[2025-02-03] MEDS: LOSARTAN POTASSIUM 25 MG TABLET PO ×2 (08:47→10:54)
--- NOTE | 2025-02-03 10:06 | EKG_ITS ---
[facility] Test Date: 2025-02-03 Pat Name: SUSSY LOCKHART [facility] Gender: Female [employer] Operator: ROGER : 1950 Requested By: Chandu Carlos Order Number: [id number] Reading MD: Chandu Carlos Measurements Intervals [place] Rate: 69 P: 40 VA: 169 QRS: 15 QRSD: 87 T: 20 QT: 439 QTc: 471 Interpretive Statements SINUS RHYTHM LOW QRS VOLTAGE IN PRECORDIAL LEADS POSSIBLE ANTERIOR MYOCARDIAL INFARCTION , PROBABLY OLD Compared to ECG 02/03/2025 02:16:39 No significant changes /store/S0/[id number].pdf
[2025-02-03 10:08] LABS: Troponin I 0.845 ng/mL (0.0-0.045)
[2025-02-03 10:53] LABS: Partial Thromboplastin Time 34.2 Seconds (22.0-36.0)
[2025-02-03] MEDS: HEPARIN SOD INJ 5000 UNIT/ML VIAL 4000 UNIT IVP (11:38)
--- NOTE | 2025-02-03 12:07 | ESPR_ITS ---
<Statement entered by Chandu Carlos MD - 02/03/25 17:17> Patient was seen and examined at bedside. I agree on the assessment and plan on this note as documented by resident Kiara Smith MD PGY1. 74-year-old female with past medical history as below, admitted for ACS workup, had uptrending troponin, was given aspirin loading dose, started on heparin drip and aspirin. Was evaluated by cardiology today, does have moderate risk factors for CAD, presents with atypical chest pain considering patient has diabetes though there is some element of possible NSTEMI type II considering patient had hypertensive emergency as well. Evaluated by cardiology today, cardiology recommends loading dose Plavix today, patient will be started on Plavix daily, cardiology planning for cardiac catheterization on Wednesday, will keep n.p.o. after midnight tomorrow. Patient noted to have asymptomatic bacteriuria, cardiology started patient on ceftriaxone, will continue. Disposition telemetry pending cardiac catheterization on Wednesday, cardiology following. Case discussed with attending Dr. Obie Carlos MD PGY-2 <Statement entered by Peri Ragland MD - 02/03/25 15:52> I Peri Ragland MD reviewed the note and agree with the resident's assessment & plan with modifications/additions/exceptions as below. I have personally reviewed labs, imaging, home meds/prior records, examined the patient, formulated and discussed management plan with the IM team. A 74-year-old female with history of HTN, DM presented to ED with chest discomfort, nausea, vomiting and noted to have atypical chest pain concerning for ACS and hypertensive emergency. Troponin mildly elevated though flat he would EKG nonischemic, CXR unremarkable. Overnight following admission heparin was initiated for anticoagulation due to concerns for NSTEMI. Patient has uncontrolled hypertension leading to hypertensive emergency with endorgan damage likely causing type II OK however patient has significant risk factors and is moderate risk of having CAD. Will consult cardiology regarding further evaluation for CAD. Continue aspirin, statin, losartan, metoprolol, will discontinue heparin drip after 24 hours. Obtain echocardiogram, aggressive electrolyte replacement, use IV hydralazine as needed for optimal blood pressure control. In the setting of leukocytosis, will get further infectious workup including UA. Will monitor off antibiotics for now as leukocytosis is likely reactive in nature due to endorgan dysfunction. Repeat CBC, CMP, CRP, procalcitonin, ESR. Continue to monitor on telemetry overnight. Documentation for date of: 02/03/25 Subjective Subjective Interval history: 74-year-old female past med history significant for hypertension, hyperlipidemia, GERD, presents to the ED with with pressure-like chest pain and nausea. Admitted for atypical chest pain and high troponin. The patient was seen and examined at bedside. Labs reviewed, troponin downtrending. Vitals are reviewed, BP is elevated 195/76 administered metoprolol succinate and losartan for blood pressure management. Patient currently endorses intermittent pressure like chest pain with no palpitation, dizziness, shortness of breath, double vision, numbness, and weakness. Endorses nausea for which she received Zofran. Exam Vital Signs Temp Pulse Resp BP Pulse Ox O2 Del Method O2 Flow Rate 97.4 F 68 19 195/76 H 97 Nasal Cannula 1 02/03/25 08:00 02/03/25 10:59 02/03/25 08:00 02/03/25 10:59 02/03/25 08:00 02/03/25 08:00 02/03/25 08:00 Narrative Exam Physical Exam General: Awake and in no acute distress. Conversational and non-toxic appearing. HEENT: Normocephalic, atraumatic, mucous membranes moist. Heart: Regular rate and rhythm, normal S1 and S2, no murmurs. Lungs: Clear to auscultation with no wheezing or crackles. Abdomen: Soft, nondistended, nontender, positive bowel sounds. ?No guarding or rebound tenderness. Neurologic: Alert and oriented x3, no gross neurological deficit, and patient able to move all 4 extremities. Extremities: No edema. Skin: No rash or ecchymoses. Objective Labs 02/03/25 04:45 02/03/25 04:45 Labs: Laboratory Results - last 24 hr 02/02/25 02/03/25 02/03/25 23:39 01:18 04:45 WBC 17.2 H 18.5 H RBC 3.60 L 3.56 L Hgb 10.9 L 10.7 L Hct 33.8 L 33.2 L MCV 94 93 MCH 30.3 30.1 MCHC 32.2 32.2 RDW Std Deviation 45.0 44.8 Plt Count 467 H 380 D Neut % (Auto) 92 H 93 H Lymph % (Auto) 4 L 4 L [place] % (Auto) 3 3 Eos % (Auto) 0 0 Baso % (Auto) 0 0 Neut # (Auto) 15.9 H 17.2 H Lymph # (Auto) 0.7 L 0.7 L [place] # (Auto) 0.5 0.5 Eos # (Auto) 0.0 0.0 Baso # (Auto) 0.1 0.0 Immature Gran # (Auto) 0.07 H 0.10 H Absolute Nucleated RBC 0.00 0.00 Immature Gran % 0 1 H Nucleated RBC % 0 0 PT 10.4 INR 0.9 APTT 23.6 54.3 H D Sodium 138 139 Potassium 3.8 3.7 Chloride 98 99 Carbon Dioxide 28.0 29.8 Anion Gap 12 10 BUN 18 17 Creatinine 1.0 0.8 Estim Creat Clear Calc 55.5 L 69.4 eGFR 59 L > 60 BUN/Creatinine Ratio 18 21 H Glucose [address] Glu mg/dL 117 Hemoglobin A1c 5.7 Calculated Osmolality 279 281 Calcium 10.2 9.6 Corrected Calcium 10.2 H 9.6 Magnesium 1.7 1.2 L Total Bilirubin 0.3 0.2 L AST 13 12 ALT < 7 L 9 L Alkaline Phosphatase 77 72 Troponin I 0.300 H* 0.615 H* D 0.953 H* D B-Natriuretic Peptide 236 H Total Protein 6.4 6.0 Albumin 4.4 4.0 Globulin 2.0 L 2.0 L Albumin/Globulin Ratio 2.2 2.0 Triglycerides 113 Cholesterol 168 LDL Cholesterol, Calc 96 HDL Cholesterol 49 Cholesterol/HDL Ratio 3.4 L TSH 2.32 Urine Opiates Screen Urine Fentanyl Screen Ur Barbiturates Screen U Amphetamin/Meth Scrn U Benzodiazepines Scrn U Cocaine Metab Screen U Marijuana (THC) Screen Urine Alcohol 02/03/25 02/03/25 02/03/25 05:00 09:40 10:10 WBC RBC Hgb Hct MCV MCH MCHC RDW Std Deviation Plt Count Neut % (Auto) Lymph % (Auto) [place] % (Auto) Eos % (Auto) Baso % (Auto) Neut # (Auto) Lymph # (Auto) [place] # (Auto) Eos # (Auto) Baso # (Auto) Immature Gran # (Auto) Absolute Nucleated RBC Immature Gran % Nucleated RBC % PT INR APTT 34.2 D Sodium Potassium Chloride Carbon Dioxide Anion Gap BUN Creatinine Estim Creat Clear Calc eGFR BUN/Creatinine Ratio Glucose Estimated Ave Glu mg/dL Hemoglobin A1c Calculated Osmolality Calcium Corrected Calcium Magnesium Total Bilirubin AST ALT Alkaline Phosphatase Troponin I 0.845 H* B-Natriuretic Peptide Total Protein Albumin Globulin Albumin/Globulin Ratio Triglycerides Cholesterol LDL Cholesterol, Calc HDL Cholesterol Cholesterol/HDL Ratio TSH Urine Opiates Screen Positive A Urine Fentanyl Screen Negative Ur Barbiturates Screen Negative U Amphetamin/Meth Scrn Negative U Benzodiazepines Scrn Negative U Cocaine Metab Screen Negative U Marijuana (THC) Screen Negative Urine Alcohol Negative Quality Measures Quality Measures none Advance care planning discussed with:: other Assessment & Plan Assessment Current Active Medications: Generic Name Dose Route Start Last Admin Trade Name Freq PRN Reason Stop Dose Admin Acetaminophen 650 mg 02/03/25 03:25 Acetaminophen 325 Mg Tablet PO 03/05/25 03:24 Q6H PRN mild pain 1-3 or Fever >100.3 Hydrocodone Bitart/Acetaminophen 1 tab 02/03/25 03:25 02/03/25 07:28 Hydrocodone/Apap 5/325 Tablet PO 02/08/25 03:24 1 tab Q4HR PRN Administration PAIN SCALE 4-6 (Moderate Aspirin 81 mg 02/03/25 09:00 02/03/25 08:46 Aspirin Ec 81 Mg Tabec PO 03/05/25 08:59 81 mg QDAY EVANS Administration Atorvastatin Calcium 80 mg 02/03/25 03:35 02/03/25 05:01 Atorvastatin Calcium 20 Mg Tablet PO 03/05/25 03:34 80 mg HS EVANS Administration Hydralazine HCl 10 mg 02/03/25 10:08 02/03/25 10:59 Hydralazine Inj 20 Mg/Ml Vial IVP 03/05/25 10:14 10 mg Q6H PRN Administration SBP> 160, DBP > 90 Heparin Sodium/Dextrose 25,000 unit in 250 mls @ 10.003 mls/hr 02/03/25 02:15 02/03/25 02:41 Heparin In D5w Ivpb IV 02/17/25 02:14 10.81 units/kg/hr .Q24H EVANS 10.003 mls/hr Administration Protocol 10.81 UNITS/KG/HR Losartan Potassium 50 mg 02/04/25 09:00 Losartan Potassium 25 Mg Tablet PO 03/06/25 08:59 QDAY EVANS Metoprolol Succinate 100 mg 02/03/25 09:00 02/03/25 08:46 Metoprolol Succinate Xl 25 Mg Tabcr PO 03/05/25 08:59 100 mg QDAY EVANS Administration Morphine Sulfate 2 mg 02/03/25 03:25 Morphine Sulf Inj 10 Mg/Ml Vial IVP 02/08/25 03:24 Q4HR PRN PAIN SCALE 7-10 (Severe Nitroglycerin 0.4 mg 02/02/25 23:17 02/03/25 01:06 Nitroglycerin 0.4 Mg Subl Btl #25 SL 0.4 1000units Q5MIN PRN Administration CHEST PAIN Ondansetron HCl 4 mg 02/03/25 03:25 02/03/25 09:44 Ondansetron Inj 2 Mg/Ml Inj 2 Ml IVP 03/05/25 03:24 4 mg Q6H PRN Administration NAUSEA OR VOMITING Protocol Sennosides 1 tab 02/03/25 09:00 02/03/25 08:47 Senna Tablet PO 03/05/25 08:59 1 tab QDAY EVANS Administration Protocol Plan 74-year-old female past med history significant for hypertension, hyperlipidemia, GERD, presents to the ED with with pressure-like chest pain and nausea. Admitted for atypical chest pain and high troponin. #Acute chest pain 2/2 ACS #NSTEMI type I versus type II #High troponin Admission troponin 0.3, uptrending 0.615,0.953, 0.845. Patient presented with acute pressure-like chest pain nonradiating with high blood pressure of 190/96 more likely NSTEMI typ1 vs type2. EKJ showed no ST elevation, chest x-ray was negative for active disease. Plan -stop trending troponins -Cardiac echo- Pending -Cardiology will follow patient, appreciate recommendations -Nitroglycerin as needed for chest pain - Morphine 2mg IV as needed for pain -Lipid panel -Follow-up urine tox screen - Aspirin 81 mg - Strict ins and outs # Hypertensive emergency # History of primary hypertension #Hyperlipidemia Patient presented with blood pressure was 190/96, tachycardic with end organ damage of elevated troponin. Denies other symptoms like double vision, numbness, and weakness. Patient reported adherence to home medication, systolic blood pressure during office visits with PCP, Dr Fernando was 140. Patient has a history of hyperlipidemia, cholesterol 168, LDL 96, HDL 49 Plan - Resume home medications metoprolol succinate 100 mg PO daily - Resume home medication losartan 50 mg p.o. daily - Started hydralazine 10 mg IVP Q6H PRN - Atorvastatin 80 mg p.o. at bedtime - Continue to monitor blood pressure #Leukocytosis On admission white blood cell 17.2 uptrending to 18.5 likely reactive. No fever noted patient denied chills, dysuria, denied cough or recent sick contacts with a chest x-ray that was negative for pneumonia. Plan - UA ordered - Continue to monitor WBC and temperature #Headaches Patient has a past medical history of headaches was started on amitriptyline. Plan -resume home med amitriptyline 25mg po #Normocytic anemia Anemia noted previous labs, hemoglobin ranging from 11-9.6. Denies shortness of breath. Denied alysia blood, hematemesis, melena and hematochezia. Plan - No acute intervention - Continue to monitor Hospital management: Lines: peripheral IV Diet: cardiac Bowel: Senna DVT prophylaxis: Heparin drip Disposition: tele bed, hypertensive emergency and NSTEMI workup. CODE STATUS: Full code Patient seen and assessed under supervision of attending physician and discuss with senior resident Dr. Carlos PGY-2 Kiara Smith MD PGY-1, Internal Medicine
[2025-02-03 13:00] LABS: Collection Type, Urine Clean Catch
[2025-02-03 13:34] LABS: Amorphous Crystals,Urine Present (Absent); Bacteria,Urine 3+; Bilirubin,Urine Negative (Negative); Blood,Urine Negative (Negative); Calcium Oxalate Crystals,Urine 1+; Color,Urine Yellow (Lt Yel-Yel); Glucose, Urine Negative (Negative); Ketones,Urine 1+ (Negative); Leukocyte Esterase,Urine Positive (Negative); Nitrite,Urine Negative (Negative); PH,Urine 6.5 (5.0-7.0); Protein,Urine Negative (Neg - Trace); RBC,Urine 1 /hpf (0-3); Specific Gravity,Urine 1.017 (1.001-1.035); Squamous Epithelial Cell,Urine 9 /hpf (0-5); Urobilinogen,Urine Negative mg/dL (0.0-1.0); WBC,Urine 7 /hpf (0-5)
[2025-02-03 13:36] LABS: Clarity,Urine Hazy (Clear/Hazy)
--- NOTE | 2025-02-03 15:07 | PC.SS ---
Rounding note: Patient on heparin drip.
[2025-02-03] MEDS: CLOPIDOGREL BISULFATE 75 MG TABLET 300 MG PO (17:34)
[2025-02-03] MEDS: cefTRIAXone/D5w 1gm IV premix 1 GM/50 ML BAG IV (17:34)
[2025-02-03 18:38] LABS: Partial Thromboplastin Time 64.6 Seconds (22.0-36.0)
--- NOTE | 2025-02-03 19:21 | ESCONSULT_ITS ---
<Statement entered by Argelia Cummins MD - 02/04/25 19:16> I personally evaluated the patient examined the patient with resident physician patient admitted hospital plastic chest pain anginal symptoms with some nausea found to have acute non-ST segment elevation myocardial infarction no EKG changes agree with aspirin Plavix and heparin drip will schedule for coronary angiogram cardiac ablation February 05, 2025. Agree with treatment and examination as documented all the essential components of the consultation report reviewed by me personally and I was present. HPI Data of Consult Requesting Physician: Dylan Kaye MD Admitting Provider: Dylan Kaye MD Attending Provider: Dylan Kaye MD Primary Care Provider: Rosalino Fernando MD Consult Narrative History of present illness: Hospital course: This is a 84-year-old female with PMHx of HTN, HLD, GERD, presented to the ED with chest pressure associated with nausea. On admission, she described a substernal chest pain that is moderate in intensity, dull in nature, nonpleuritic, lasting several minutes, appears to worsen with exertion. She reports being nauseous all morning, and had an episode of vomiting in the ED. On admission she was hypertensive with BP 190/96, HR 63, satting on room air, slightly tachypneic at RR 23. She has leukocytosis with WBC around 18, and chronic anemia with Hgb around 10. CBC relatively benign for mild hypercalcemia which resolved. Troponin peaked at 0.953. EG shows sinus rhythm without acute ST changes. CXR showed no active disease. Denied cough, headaches, palpitations, dizziness, lightheadedness, syncope or presyncope. She started on NITROGLYCERIN and MORPHINE for pain. HEPARIN GGT, ASPIRIN, and high-dose statin, and METOPROLOL were initiated. On evaluation, she was asymptomatic without chest pain or shortness of breath or palpitations. Nausea has also resolved. 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 Medications: * HYDROCHLOROTHIAZIDE, LOSARTAN, METOPROLOL SUCCINATE, SIMVASTATIN, AMITRIPTYLINE. Allergies: * Grass and pollen allegies. Family History: * Mother Stroke X 2 and Father Parkinson Disease Social History: * Denied alcohol use, never smoker, denied illicit drug use Reason for consult: Sensation concerning for acute coronary syndrome with elevated troponin but no EKG changes, suggestive of NSTEMI. She has multiple risk factors for ischemic cardiomyopathy including longstanding hypertension, age, and hyperlipidemia. Recommendations: Continue with HEPARIN GGT, ASPIRIN, high-dose statin and METOPROLOL. Recommended the addition of a loading dose PLAVIX 200 mg, and continue 75 mg daily. Will proceed with cardiac cath on Wednesday to rule out coronary syndrome. Will follow- up with echocardiogram to evaluate for structural abnormalities and rule out ischemic changes. Continue with pain control. cc:: cc: Dylan Kaye MD Exam Vital Signs Temp Pulse Resp BP Pulse Ox O2 Del Method O2 Flow Rate 97.7 F 70 23 H 135/59 H 97 Nasal Cannula 1 02/03/25 16:00 02/03/25 16:02/03/25 16:02/03/25 16:02/03/25 16:02/03/25 16:02/03/25 16:00 Narrative Exam GENERAL * Normal appearing elderly female, NAD, on room air satting well. HEENT * NCAT.?KRISTAL. Oral mucosa is moist. Patent Nares NECK * Supple, nontender, no JVD. CHEST * RRR, no m/g/r * CTAB, no w/r/r, symmetrical expansion. ABDOMEN * Soft, flat, nontender. No guarding/rebound tenderness/masses. * Bowel sounds presents EXTREMITIES * No edema/cyanosis.? SKIN * Warm and dry, no jaundice/rashes. NEUROMUSCULAR * No lumbar or midline, no CVA, no paraspinal muscle spasm or tenderness. * Moves all 4 extremities well, with full ROM and good CSM. * HERNANDEZ x4, CN II-XII grossly intact. * No focal neurologic deficits. PSYCHIATRY * Normal mood and affect, cooperative, no SI or HI or hallucinations. Results Labs 02/03/25 04:45 02/03/25 04:45 Labs: Short CBC 02/02/25 02/03/25 Range/Units 23:39 04:45 WBC 17.2 H 18.5 H (3.6-11.0) Thou/mm3 Hgb 10.9 L 10.7 L (12.0-16.0) g/dL Hct 33.8 L 33.2 L (36.0-46.0) % Plt Count 467 H 380 D (140-440) Thou/mm3 BMP 02/02/25 02/03/25 23:39 04:45 Sodium 138 139 Potassium 3.8 3.7 Chloride 98 99 Carbon Dioxide 28.0 29.8 BUN 18 17 Creatinine 1.0 0.8 Glucose 126 H 128 H Calcium 10.2 9.6 Cardiac Enzymes 02/02/25 02/03/25 02/03/25 Range/Units 23:39 01:18 04:45 Troponin I 0.300 H* 0.615 H* D 0.953 H* D (0.0-0.045) ng/mL 02/03/25 Range/Units 09:40 Troponin I 0.845 H* (0.0-0.045) ng/mL Liver Function 02/02/25 02/03/25 Range/Units 23:39 04:45 Total Bilirubin 0.3 0.2 L (0.3-1.2) mg/dL AST 13 12 (0-34) U/L ALT < 7 L 9 L (10-49) U/L Alkaline Phosphatase 77 72 (46-116) U/L Albumin 4.4 4.0 (3.4-4.8) gm/dL Urine 02/03/25 Range/Units 12:37 Urine Color Yellow (Lt Yel-Yel) Urine Clarity Hazy (Clear/Hazy) Urine pH 6.5 (5.0-7.0) Ur Specific [place] 1.017 (1.001-1.035) Urine Protein Negative (Neg - Trace) Urine Glucose (UA) Negative (Negative) Quality Measures Quality Measures none Advance care planning discussed with:: patient Medications Home Medications and Allergies Home Medications ?Medication ?Instructions ?Recorded ?Confirmed ?Type metoprolol succinate 100 mg 100 mg PO QDAY ##0 4 02/03/25 History tablet,extended release 24 hr (Toprol XL) simvastatin 40 mg tablet (Zocor) 20 mg PO HS #0 tabs 1 02/03/25 History famotidine 20 mg tablet (Pepcid) 20 mg PO BID #0 tabs 09/28/16 02/03/25 History hydrochlorothiazide 25 mg tablet 25 mg PO QAM #0 tabs 09/28/16 02/03/25 History losartan 50 mg tablet 50 mg PO QDAY 11/17/2302/03 History amitriptyline 25 mg tablet 25 mg PO QPM 09/13/2402/03 History fluticasone propionate 50 2 spray intranasal QDAY 01/1902/03/25 History mcg/actuation nasal spray,suspension ibuprofen 800 mg tablet 800 mg PO Q8HR PRN pain 01/1902/03/25 History simvastatin 10 mg tablet 10 mg PO QDAY 02/03/2502/03 History terbinafine HCl 250 mg tablet 250 mg PO QDAY 02/03/25 02/03/25 History tizanidine 4 mg tablet 4 mg PO HS muscle pain/spasm 02/03/25 02/03/25 History Allergies Allergy/AdvReac Type Severity Reaction Status Date / Time amoxicillin AdvReac Mild Nausea/Vomi Verified 02/02/25 22:56 tiing clavulanic acid AdvReac Mild Nausea/Vomi Verified 02/02/25 22:56 tiing Visit Medications Acetaminophen (Acetaminophen 325 Mg Tablet) 650 mg PO Q6H PRN PRN Reason: mild pain 1-3 or Fever >100.3 Stop: 03/05/25 03:24 Hydrocodone Bitart/Acetaminophen (Hydrocodone/Apap 5/325 Tablet) 1 tab PO Q4HR PRN PRN Reason: PAIN SCALE 4-6 (Moderate Stop: 02/08/25 03:24 Last Admin: 02/03/25 19:13 Dose: 1 tab Amitriptyline HCl (Amitriptyline Hcl 25 Mg Tablet) 25 mg PO QPM [facility] Stop: 03/05/25 20:59 Aspirin (Aspirin Ec 81 Mg Tabec) 81 mg PO QDAY [facility] Stop: 03/05/25 08:59 Last Admin: 02/03/25 08:46 Dose: 81 mg Atorvastatin Calcium (Atorvastatin Calcium 20 Mg Tablet) 80 mg PO HS [facility] Stop: 03/05/25 03:34 Last Admin: 02/03/25 05:01 Dose: 80 mg Clopidogrel Bisulfate (Clopidogrel Bisulfate 75 Mg Tablet) 75 mg PO QDAY [facility] Stop: 03/06/25 08:59 Hydralazine HCl (Hydralazine Inj 20 Mg/Ml Vial) 10 mg IVP Q6H PRN PRN Reason: SBP> 160, DBP > 90 Stop: 03/05/25 10:14 Last Admin: 02/03/25 10:59 Dose: 10 mg Heparin Sodium/Dextrose (Heparin In D5w Ivpb) 25,000 unit in 250 mls @ 10.003 mls/hr IV .Q24H [facility]; Protocol Stop: 02/17/25 02:14 Last Titration: 02/03/25 18:57 Dose: 14.81 units/kg/hr, 13.704 mls/hr Ceftriaxone Sodium/Dextrose (Rocephin/D5w 1gm Iv Premix) 1 gm in 50 mls @ 100 mls/hr IV QDAY [facility] Stop: 02/10/25 17:14 Last Admin: 02/03/25 17:34 Dose: 100 mls/hr Losartan Potassium (Losartan Potassium 25 Mg Tablet) 50 mg PO QDAY [facility] Stop: 03/06/25 08:59 Metoprolol Succinate (Metoprolol Succinate Xl 25 Mg Tabcr) 100 mg PO QDAY [facility] Stop: 03/05/25 08:59 Last Admin: 02/03/25 08:46 Dose: 100 mg Morphine Sulfate (Morphine Sulf Inj 10 Mg/Ml Vial) 2 mg IVP Q4HR PRN PRN Reason: PAIN SCALE 7-10 (Severe Stop: 02/08/25 03:24 Nitroglycerin (Nitroglycerin 0.4 Mg Subl Btl #25) 0.4 mg SL Q5MIN PRN PRN Reason: CHEST PAIN Last Admin: 02/03/25 01:06 Dose: 0.4 1000units Ondansetron HCl (Ondansetron Inj 2 Mg/Ml Inj 2 Ml) 4 mg IVP Q6H PRN; Protocol PRN Reason: NAUSEA OR VOMITING Stop: 03/05/25 03:24 Last Admin: 02/03/25 09:44 Dose: 4 mg Sennosides (Senna Tablet) 1 tab PO QDAY [facility]; Protocol Stop: 03/05/25 08:59 Last Admin: 02/03/25 08:47 Dose: 1 tab Tizanidine HCl (Tizanidine Hcl 2 Mg Tablet) 4 mg PO HS [facility] Stop: 03/05/25 20:59 Discontinued Medications Aspirin (Aspirin 325 Mg Tablet) 325 mg PO X1 ONE Stop: 02/02/25 23:18 Last Admin: 02/03/25 00:49 Dose: 325 mg Clopidogrel Bisulfate (Clopidogrel Bisulfate 75 Mg Tablet) 300 mg PO X1 ONE Stop: 02/03/25 17:16 Last Admin: 02/03/25 17:34 Dose: 300 mg Heparin Sodium (Porcine) (Heparin Sod Inj 5000 Unit/Ml Vial) 4,000 unit IV X1 ONE; Protocol Stop: 02/03/25 02:03 Last Admin: 02/03/25 02:37 Dose: 4,000 unit Heparin Sodium (Porcine) (Heparin Sod Inj 5000 Unit/Ml Vial) 4,000 unit IVP X1 ONE; Protocol Stop: 02/03/25 11:26 Last Admin: 02/03/25 11:38 Dose: 4,000 unit Hydralazine HCl (Hydralazine Inj 20 Mg/Ml Vial) 10 mg IVP X1 ONE Stop: 02/02/25 23:44 Last Admin: 02/03/25 00:08 Dose: 10 mg Sodium Chloride (Ns) 1,000 mls @ 999 mls/hr IV .Q1H1M ONE Stop: 02/03/25 00:45 Last Infusion: 02/03/25 01:12 Dose: Infused Magnesium Sulfate (Magnesium Sulfate Ivpb) 2 gm in 50 mls @ 25 mls/hr IV X1 ONE Stop: 02/03/25 05:51 Last Admin: 02/03/25 04:45 Dose: 25 mls/hr Magnesium Sulfate (Magnesium Sulfate Ivpb) 4 gm in 50 mls @ 12.5 mls/hr IV X1 ONE Stop: 02/03/25 11:48 Last Admin: 02/03/25 08:46 Dose: 12.5 mls/hr Losartan Potassium (Losartan Potassium 25 Mg Tablet) 25 mg PO QDAY [facility] Stop: 03/05/25 08:59 Last Admin: 02/03/25 08:47 Dose: 25 mg Losartan Potassium (Losartan Potassium 25 Mg Tablet) 25 mg PO X1 ONE Stop: 02/03/25 10:09 Last Admin: 02/03/25 10:54 Dose: 25 mg Morphine Sulfate (Morphine Sulf Inj 10 Mg/Ml Vial) 4 mg IVP X1 ONE Stop: 02/03/25 02:30 Last Admin: 02/03/25 02:35 Dose: 4 mg Ondansetron HCl (Ondansetron Inj 2 Mg/Ml Inj 2 Ml) 4 mg IVP X1 ONE; Protocol Stop: 02/02/25 23:45 Last Admin: 02/03/25 00:06 Dose: 4 mg Ondansetron HCl (Ondansetron Inj 2 Mg/Ml Inj 2 Ml) 4 mg IVP X1 ONE; Protocol Stop: 02/03/25 00:37 Last Admin: 02/03/25 00:46 Dose: 4 mg Potassium Chloride (Potassium Chloride 20 Meq Tabcr) 20 meq PO X1 ONE Stop: 02/03/25 03:53 Last Admin: 02/03/25 05:04 Dose: 20 meq Assessment & Plan Plan This is a 84-year-old female with PMHx of HTN, HLD, GERD, presented to the ED with chest pressure associated with nausea. 1. NSTEMI type II versus type I 2. Hypertensive emergency (resolved) 3. Primary hypertension 4. Hyperlipidemia 5. Asymptomatic bacteria 6. GERD. 7. Chronic normocytic anemia 8. Leukocytosis Presented with acute episode of chest pain that appears to be cardiac in nature, nonreproducible on exam, resolved with NITROGLYCERIN and pain control. She has a history of GERD with recurrent flareups, however current symptoms aren't consistent with GERD as she describes them. Troponin was elevated on admission, no acute ST changes were seen on EKG. RECOMMENDATIONS: Continue with HEPARIN GGT, ASPIRIN, high-dose statin and METOPROLOL. Recommended the addition of a loading dose PLAVIX 200 mg, and continue 75 mg daily. Will proceed with cardiac cath on Wednesday to rule out coronary syndrome. Will follow-up with echocardiogram to evaluate for structural abnormalities and rule out ischemic changes. Continue with pain control. Maintain K>4.0 and Mag>2.0. Maintain normotensive state. Recommended ANTIBIOTICS for leukocytosis which is likely due to UTI. Case was discussed with attending physician, Dr. Cummins. Manny Mark, PGY II This document was transcribed using voice recognition technology. Minor inaccuracies may be present.
[2025-02-03] MEDS: AMITRIPTYLINE HCL 25 MG TABLET PO (20:09)
[2025-02-03] MEDS: Heparin/D5w 25K 250 ML Ivpb 25,000 UNIT/250 ML BAG 13.704 UNIT IV (23:16)
[2025-02-04] VITALS (11 sets, daily range): BP systolic 117–145; BP diastolic 53–68; PULSE 60–82; RESP 12–22; TEMP 36.1–36.4; O2SAT 91–96
[2025-02-04 01:02] LABS: Partial Thromboplastin Time 58.5 Seconds (22.0-36.0)
[2025-02-04 06:41] LABS: Basophils # (Auto) 0.0 Thou/mm3 (0.0-0.2); Basophils % (Auto) 0 % (0-2.5); Eosinophils # (Auto) 0.2 Thou/mm3 (0.0-0.5); Eosinophils % (Auto) 2 % (0-10); Hematocrit 30.4 % (36.0-46.0); Hemoglobin 9.5 g/dL (12.0-16.0); Immature Granulocytes Auto 0.03 Thou/mm3 (0.00-0.00); Lymphocytes # (Auto) 1.2 Thou/mm3 (1.0-4.8); Lymphocytes % (Auto) 11 % (10-50); Mean Corpuscular HGB Conc 31.3 g/dl (31.0-37.0); Mean Corpuscular Hemoglobin 30.0 pg (25.0-35.0); Mean Corpuscular Volume 96 fL (80-100); Monocytes # (Auto) 0.7 Thou/mm3 (0.0-0.8); Monocytes % (Auto) 7 % (0-12); Neutrophils # (Auto) 8.1 Thou/mm3 (1.8-7.7); Neutrophils % (Auto) 79 % (37-80); Nucleated Red Blood Cell # 0.00 Thou/mm3 (0.00-0.00); Nucleated Red Blood Cell % 0 /100 WBC (0); Platelet Count 322 Thou/mm3 (140-440); RDW Standard Deviation 47.6 fL (36.4-46.3); Red Blood Count 3.17 Miln/mm3 (4.00-5.20); White Blood Count 10.3 Thou/mm3 (3.6-11.0)
--- NOTE | 2025-02-04 06:44 | PC.NURSE ---
patient ptt has not came back at this time for heparin drip, will hand off to day shift nurse, Mirela.
[2025-02-04 07:35] LABS: Partial Thromboplastin Time 67.5 Seconds (22.0-36.0)
[2025-02-04 07:37] LABS: Alanine Aminotransferase < 7 U/L (10-49); Albumin, Serum 3.4 gm/dL (3.4-4.8); Albumin/Globulin Ratio 2.0 (1.2-2.2); Alkaline Phosphatase 59 U/L (46-116); Anion Gap 7 (7-16); Aspartate Amino Transferase 10 U/L (0-34); BUN/Creatinine Ratio 12 Ratio (12-20); Bilirubin,Total 0.3 mg/dL (0.3-1.2); Blood Urea Nitrogen 16 mg/dL (9-23); Calcium 8.7 mg/dL (8.3-10.6); Calcium (Corrected) 9.2 mg/dL (8.5-10.1); Carbon Dioxide 31.4 mMol/L (20.0-31.0); Chloride 101 mMol/L (98-107); Creatinine (Component) 1.3 mg/dL (0.6-1.3); Estimated Creatinine Clearance 44.1 mL/min (>60); Globulin 1.7 gm/dL (2.3-3.5); Glucose 99 mg/dL (74-106); Magnesium 2.0 mg/dL (1.6-2.6); Osmolality,Calculated 278 (275-295); Phosphorous 3.2 mg/dL (2.4-5.1); Potassium 3.9 mMol/L (3.4-5.1); Sodium 139 mMol/L (136-145); Total Protein 5.1 gm/dL (5.7-8.2); eGFR 43 See Note
[2025-02-04] MEDS: LOSARTAN POTASSIUM 25 MG TABLET 50 MG PO (08:46)
[2025-02-04] MEDS: METOPROLOL SUCCINATE XL 25 MG TABCR 100 MG PO (08:47)
[2025-02-04] MEDS: CLOPIDOGREL BISULFATE 75 MG TABLET PO (08:48)
[2025-02-04] MEDS: cefTRIAXone/D5w 1gm IV premix 1 GM/50 ML BAG IV (08:48)
[2025-02-04] MEDS: ASPIRIN EC 81 MG TABEC PO (08:48)
--- NOTE | 2025-02-04 11:28 | PC.SS ---
This is 74-year-old, , female who presented to the hospital for chest pain. Patient appeared alert and oriented to self, place and situation. Patient was pleasant. Patient reported that she resides at home with her , Davin. Patient is independent with all ADLs, no DME use. Patient assigned her , Davin as her medical decision maker. Patient's PCP is Dr. Fernando and neurologist is Dr. Ruffin. When medically clear, patient will return home, no transportation will be needed. Discharge plan: home. Next of kin: Davin Royal, .
[2025-02-04] MEDS: RINGERS LACTATED 1000 ML 1,000 ML 75 ML IV (13:18)
--- NOTE | 2025-02-04 13:54 | ESPR_ITS ---
<Statement entered by Argelia Cummins MD - 02/04/25 19:16> I personally evaluated examined this patient and telemetry patient is clinically improved chest pain resolved but still having some shortness of breath will schedule for coronary angiogram cardiac catheterization possible PCI tomorrow risks benefits arteries were explained to the patient agree with the treatment plan recommendation as documented by PGY 1 Dr. Mitchell Montano. Documentation for date of: 02/04/25 Subjective Subjective Interval history: No overnight events. Patient is comfortable in bed. Troponins trended down slightly from 0.9-0.8. Most recent EKG was negative for any acute ST segment changes. Cardiology plans for coronary angiogram 02/05/2025. N.p.o. after midnight. Exam Vital Signs Temp Pulse Resp BP Pulse Ox O2 Del Method O2 Flow Rate 97.2 F 61 17 134/62 H 94 L Room Air 1 02/04/25 12:00 02/04/25 12:00 02/04/25 12:00 02/04/25 12:00 02/04/25 12:00 02/04/25 12:02/04/25 00:00 Narrative Exam General: Awake and in no acute distress. Conversational and non-toxic appearing. Neurologic: GCS 15. Alert and oriented x3, no gross neurological deficit, and patient able to move all 4 extremities. HEENT: Normocephalic, atraumatic, mucous membranes moist. Pupils reactive to light. Heart: Regular rate and rhythm, normal S1 and S2, no murmurs. Lungs: Clear to auscultation bilaterally with no wheezing or crackles. Abdomen: Soft, nondistended, nontender, positive bowel sounds. No guarding or rebound tenderness. Extremities: No edema. 2+ radial and dorsalis pedis pulses bilaterally. Skin: Warm. Dry. No rash or ecchymoses. Objective Labs 02/04/25 06:15 02/04/25 06:15 Labs: Laboratory Results - last 24 hr 02/03/25 02/03/25 02/04/25 17:51 23:50 06:15 WBC 10.3 D RBC 3.17 L Hgb 9.5 L Hct 30.4 L MCV 96 MCH 30.0 MCHC 31.3 RDW Std Deviation 47.6 H Plt Count 322 D Neut % (Auto) 79 Lymph % (Auto) 11 [place] % (Auto) 7 Eos % (Auto) 2 Baso % (Auto) 0 Neut # (Auto) 8.1 H Lymph # (Auto) 1.2 [place] # (Auto) 0.7 Eos # (Auto) 0.2 Baso # (Auto) 0.0 Immature Gran # (Auto) 0.03 H Absolute Nucleated RBC 0.00 Immature Gran % 0 Nucleated RBC % 0 APTT 64.6 H D 58.5 H 67.5 H Sodium 139 Potassium 3.9 Chloride 101 Carbon Dioxide 31.4 H Anion Gap 7 BUN 16 Creatinine 1.3 D Estim Creat Clear Calc 44.1 L eGFR 43 L BUN/Creatinine Ratio 12 Glucose 99 Calculated Osmolality 278 Calcium 8.7 Corrected Calcium 9.2 Phosphorus 3.2 Magnesium 2.0 Total Bilirubin 0.3 AST 10 ALT < 7 L Alkaline Phosphatase 59 Total Protein 5.1 L Albumin 3.4 D Globulin 1.7 L Albumin/Globulin Ratio 2.0 Quality Measures Quality Measures none Advance care planning discussed with:: patient Assessment & Plan Assessment Current Active Medications: Generic Name Dose Route Start Last Admin Trade Name Freq PRN Reason Stop Dose Admin Acetaminophen 650 mg 02/03/25 03:25 Acetaminophen 325 Mg Tablet PO 03/05/25 03:24 Q6H PRN mild pain 1-3 or Fever >100.3 Hydrocodone Bitart/Acetaminophen 1 tab 02/03/25 03:25 02/03/25 19:13 Hydrocodone/Apap 5/325 Tablet PO 02/08/25 03:24 1 tab Q4HR PRN Administration PAIN SCALE 4-6 (Moderate Amitriptyline HCl 25 mg 02/03/25 21:00 02/03/25 20:09 Amitriptyline Hcl 25 Mg Tablet PO 03/05/25 20:59 25 mg QPM [facility] Administration Aspirin 81 mg 02/03/25 09:00 02/04/25 08:48 Aspirin Ec 81 Mg Tabec PO 03/05/25 08:59 81 mg QDAY EVANS Administration Atorvastatin Calcium 80 mg 02/03/25 03:35 02/03/25 20:09 Atorvastatin Calcium 20 Mg Tablet PO 03/05/25 03:34 80 mg HS [facility]ANS Administration Clopidogrel Bisulfate 75 mg 02/04/25 09:00 02/04/25 08:48 Clopidogrel Bisulfate 75 Mg Tablet PO 03/06/25 08:59 75 mg QDAY [facility]ANS Administration Hydralazine HCl 10 mg 02/03/25 10:08 02/03/25 10:59 Hydralazine Inj 20 Mg/Ml Vial IVP 03/05/25 10:14 10 mg Q6H PRN Administration SBP> 160, DBP > 90 Heparin Sodium/Dextrose 25,000 unit in 250 mls @ 10.003 mls/hr 02/03/25 02:15 02/04/25 08:43 Heparin In D5w Ivpb IV 02/17/25 02:14 14.81 units/kg/hr .Q24H [facility] 13.704 mls/hr Titration Protocol 10.81 UNITS/KG/HR Ceftriaxone Sodium/Dextrose 1 gm in 50 mls @ 100 mls/hr 02/03/25 17:15 02/04/25 08:48 Rocephin/D5w 1gm Iv Premix IV 02/10/25 17:14 100 mls/hr QDAY [facility]ANS Administration Lactated Ringer's 1,000 mls @ 75 mls/hr 02/04/25 12:04 02/04/25 13:18 Lactated Ringers IV 03/06/25 12:03 75 mls/hr .[id number] EVANS Administration Losartan Potassium 50 mg 02/04/25 09:00 02/04/25 08:46 Losartan Potassium 25 Mg Tablet PO 03/06/25 08:59 50 mg QDAY [facility]ANS Administration Metoprolol Succinate 100 mg 02/03/25 09:00 02/04/25 08:47 Metoprolol Succinate Xl 25 Mg Tabcr PO 03/05/25 08:59 100 mg QDAY [facility]ANS Administration Morphine Sulfate 2 mg 02/03/25 03:25 Morphine Sulf Inj 10 Mg/Ml Vial IVP 02/08/25 03:24 Q4HR PRN PAIN SCALE 7-10 (Severe Nitroglycerin 0.4 mg 02/02/25 23:17 02/03/25 01:06 Nitroglycerin 0.4 Mg Subl Btl #25 SL 0.4 1000units Q5MIN PRN Administration CHEST PAIN Ondansetron HCl 4 mg 02/03/25 03:25 02/03/25 09:44 Ondansetron Inj 2 Mg/Ml Inj 2 Ml IVP 03/05/25 03:24 4 mg Q6H PRN Administration NAUSEA OR VOMITING Protocol Sennosides 1 tab 02/03/25 09:00 02/04/25 08:48 Senna Tablet PO 03/05/25 08:59 1 tab QDAY EVANS Administration Protocol Tizanidine HCl 4 mg 02/03/25 21:00 02/03/25 20:09 Tizanidine Hcl 2 Mg Tablet PO 03/05/25 20:59 4 mg HS EVANS Administration Plan This is a 84-year-old female with PMHx of HTN, HLD, GERD, presented to the ED with chest pressure associated with nausea. 1. NSTEMI type II versus type I 2. Hypertensive emergency (resolved) 3. Primary hypertension 4. Hyperlipidemia 5. Asymptomatic bacteria 6. GERD. 7. Chronic normocytic anemia 8. Leukocytosis Presented with acute episode of chest pain that appears to be cardiac in nature, nonreproducible on exam, resolved with NITROGLYCERIN and pain control. She has a history of GERD with recurrent flareups, however current symptoms aren't consistent with GERD as she describes them. Troponin was elevated on admission, no acute ST changes were seen on EKG. RECOMMENDATIONS: Continue with HEPARIN GGT, ASPIRIN, high-dose statin and METOPROLOL. Recommended the addition of a loading dose PLAVIX 200 mg, and continue 75 mg daily. Will proceed with cardiac cath on 02/05/2025 to rule out coronary syndrome. Will follow-up with echocardiogram to evaluate for structural abnormalities and rule out ischemic changes. Continue with pain control. Maintain K>4.0 and Mag>2.0. Maintain normotensive state. Recommended ANTIBIOTICS for leukocytosis which is likely due to UTI. Patient was seen and discussed with my attending physician Dr. Cummins. Mitchell Montano DO PGY-1.
--- NOTE | 2025-02-04 14:11 | PD.RESPRO ---
Documentation for date of: 02/04/25 Subjective Subjective Interval history: Overnight events: Patient was seen and examined at bedside. AM vitals and labs reviewed. Patient has no complaints at this time. Patient has no chest pain or shortness of breath. Creatinine did jump to 1.3 today. Continue with recommendations from cardiology: Plavix, heparin GGT, high-dose statin, and metoprolol. Pending echo. Started LR 125 cc/h, will reassess need for fluids tomorrow. Review of systems otherwise negative except for what is mentioned above. Exam Vital Signs Temp Pulse Resp BP Pulse Ox O2 Del Method O2 Flow Rate 97.2 F 61 17 134/62 H 94 L Room Air 1 02/04/25 12:00 02/04/25 12:00 02/04/25 12:02/04/25 12:02/04/25 12:02/04/25 12:02/04/25 00:00 Narrative Exam Physical Exam: General: Alert, no acute distress. Skin: Warm, dry, intact, no obvious rash. Head: Normocephalic, atraumatic. Eye: Normal conjunctiva, PERRL. Cardiovascular: Regular rate and rhythm, no murmur, +S1/S2. Respiratory: Lungs are clear to auscultation, respirations unlabored, no crackles, no wheezing. Gastrointestinal: Soft, nontender, non-distended. No guarding or rebound tenderness. Extremities: Trace pedal edema, no cyanosis, no clubbing. 2+ radial pulse bilaterally, 2+ pedal pulse bilaterally. Neuro: No focal deficits observed. Conversant, moving all extremities. No overt cerebellar signs/incoordination. Psychiatric: Cooperative, appropriate affect. Objective Labs 02/04/25 06:15 02/04/25 06:15 Labs: Laboratory Results - last 24 hr 02/03/25 02/03/25 02/04/25 17:51 23:50 06:15 WBC 10.3 D RBC 3.17 L Hgb 9.5 L Hct 30.4 L MCV 96 MCH 30.0 MCHC 31.3 RDW Std Deviation 47.6 H Plt Count 322 D Neut % (Auto) 79 Lymph % (Auto) 11 [place] % (Auto) 7 Eos % (Auto) 2 Baso % (Auto) 0 Neut # (Auto) 8.1 H Lymph # (Auto) 1.2 [place] # (Auto) 0.7 Eos # (Auto) 0.2 Baso # (Auto) 0.0 Immature Gran # (Auto) 0.03 H Absolute Nucleated RBC 0.00 Immature Gran % 0 Nucleated RBC % 0 APTT 64.6 H D 58.5 H 67.5 H Sodium 139 Potassium 3.9 Chloride 101 Carbon Dioxide 31.4 H Anion Gap 7 BUN 16 Creatinine 1.3 D Estim Creat Clear Calc 44.1 L eGFR 43 L BUN/Creatinine Ratio 12 Glucose 99 Calculated Osmolality 278 Calcium 8.7 Corrected Calcium 9.2 Phosphorus 3.2 Magnesium 2.0 Total Bilirubin 0.3 AST 10 ALT < 7 L Alkaline Phosphatase 59 Total Protein 5.1 L Albumin 3.4 D Globulin 1.7 L Albumin/Globulin Ratio 2.0 Quality Measures Quality Measures none Advance care planning discussed with:: patient Assessment & Plan Assessment Current Active Medications: Generic Name Dose Route Start Last Admin Trade Name Freq PRN Reason Stop Dose Admin Acetaminophen 650 mg 02/03/25 03:25 Acetaminophen 325 Mg Tablet PO 03/05/25 03:24 Q6H PRN mild pain 1-3 or Fever >100.3 Hydrocodone Bitart/Acetaminophen 1 tab 02/03/25 03:25 02/03/25 19:13 Hydrocodone/Apap 5/325 Tablet PO 02/08/25 03:24 1 tab Q4HR PRN Administration PAIN SCALE 4-6 (Moderate Amitriptyline HCl 25 mg 02/03/25 21:00 02/03/25 20:09 Amitriptyline Hcl 25 Mg Tablet PO 03/05/25 20:59 25 mg QPM EVANS Administration Aspirin 81 mg 02/03/25 09:00 02/04/25 08:48 Aspirin Ec 81 Mg Tabec PO 03/05/25 08:59 81 mg QDAY EVANS Administration Atorvastatin Calcium 80 mg 02/03/25 03:35 02/03/25 20:09 Atorvastatin Calcium 20 Mg Tablet PO 03/05/25 03:34 80 mg HS EVANS Administration Clopidogrel Bisulfate 75 mg 02/04/25 09:00 02/04/25 08:48 Clopidogrel Bisulfate 75 Mg Tablet PO 03/06/25 08:59 75 mg QDAY EVANS Administration Hydralazine HCl 10 mg 02/03/25 10:08 02/03/25 10:59 Hydralazine Inj 20 Mg/Ml Vial IVP 03/05/25 10:14 10 mg Q6H PRN Administration SBP> 160, DBP > 90 Heparin Sodium/Dextrose 25,000 unit in 250 mls @ 10.003 mls/hr 02/03/25 02:15 02/04/25 08:43 Heparin In D5w Ivpb IV 02/17/25 02:14 14.81 units/kg/hr .Q24H EVANS 13.704 mls/hr Titration Protocol 10.81 UNITS/KG/HR Ceftriaxone Sodium/Dextrose 1 gm in 50 mls @ 100 mls/hr 02/03/25 17:15 02/04/25 08:48 Rocephin/D5w 1gm Iv Premix IV 02/10/25 17:14 100 mls/hr QDAY EVANS Administration Lactated Ringer's 1,000 mls @ 75 mls/hr 02/04/25 12:04 02/04/25 13:18 Lactated Ringers IV 03/06/25 12:03 75 mls/hr .[id number] EVANS Administration Losartan Potassium 50 mg 02/04/25 09:00 02/04/25 08:46 Losartan Potassium 25 Mg Tablet PO 03/06/25 08:59 50 mg QDAY EVANS Administration Metoprolol Succinate 100 mg 02/03/25 09:00 02/04/25 08:47 Metoprolol Succinate Xl 25 Mg Tabcr PO 03/05/25 08:59 100 mg QDAY EVANS Administration Morphine Sulfate 2 mg 02/03/25 03:25 Morphine Sulf Inj 10 Mg/Ml Vial IVP 02/08/25 03:24 Q4HR PRN PAIN SCALE 7-10 (Severe Nitroglycerin 0.4 mg 02/02/25 23:17 02/03/25 01:06 Nitroglycerin 0.4 Mg Subl Btl #25 SL 0.4 1000units Q5MIN PRN Administration CHEST PAIN Ondansetron HCl 4 mg 02/03/25 03:25 02/03/25 09:44 Ondansetron Inj 2 Mg/Ml Inj 2 Ml IVP 03/05/25 03:24 4 mg Q6H PRN Administration NAUSEA OR VOMITING Protocol Sennosides 1 tab 02/03/25 09:00 02/04/25 08:48 Senna Tablet PO 03/05/25 08:59 1 tab QDAY EVANS Administration Protocol Tizanidine HCl 4 mg 02/03/25 21:00 02/03/25 20:09 Tizanidine Hcl 2 Mg Tablet PO 03/05/25 20:59 4 mg HS [facility] Administration Plan 74-year-old female past med history significant for hypertension, hyperlipidemia, GERD, presents to the ED with with pressure-like chest pain and nausea. Admitted for atypical chest pain and high troponin. #Acute chest pain 2/2 ACS #NSTEMI type I versus type II #High troponin Admission troponin 0.3, uptrending 0.615,0.953, 0.845. Patient presented with acute pressure-like chest pain nonradiating with high blood pressure of 190/96 more likely NSTEMI typ1 vs type2. EKJ showed no ST elevation, chest x-ray was negative for active disease. Plan -stop trending troponins -Cardiac echo- Pending -Cardiology will follow patient, appreciate recommendations - Continue heparin drip, aspirin 81 mg daily, atorvastatin 80 mg at night, metoprolol 100 mg daily, and Plavix 75 mg daily - Cardiac cath 02/05 to rule out coronary syndrome -Nitroglycerin as needed for chest pain - Morphine 2mg IV as needed for pain -Lipid panel -Follow-up urine tox screen - Maintain potassium above 4 and magnesium above 2 - Strict ins and outs # Hypertensive emergency # History of primary hypertension #Hyperlipidemia Patient presented with blood pressure was 190/96, tachycardic with end organ damage of elevated troponin. Denies other symptoms like double vision, numbness, and weakness. Patient reported adherence to home medication, systolic blood pressure during office visits with PCP, Dr Fernando was 140. Patient has a history of hyperlipidemia, cholesterol 168, LDL 96, HDL 49 Plan - Resume home medications metoprolol succinate 100 mg PO daily - Resume home medication losartan 50 mg p.o. daily - Started hydralazine 10 mg IVP Q6H PRN - Atorvastatin 80 mg p.o. at bedtime - Continue to monitor blood pressure #Leukocytosis #? Urinary tract infection On admission white blood cell 17.2 uptrending to 18.5 likely reactive. No fever noted patient denied chills, dysuria, denied cough or recent sick contacts with a chest x-ray that was negative for pneumonia. Plan - UA ordered, showed 7 WBC, 9 squamous epithelial cells, amorphous crystals, calcium oxalate crystals, and 3+ bacteria - Continue ceftriaxone 1g daily (02/03--) - Continue to monitor WBC and temperature #Acute kidney injury, likely prerenal Patient noted to have an increase in creatinine from 0.8 on 02/03 to 1.3 on 02/04. This is likely due to decreased oral intake by the patient. ? Started patient on lactated Ringer's at 125 mls/h, will reassess need on 02/05 ? Avoid nephrotoxic drugs ? Renally dose medications #Headaches Patient has a past medical history of headaches was started on amitriptyline. Plan -resume home med amitriptyline 25mg po #Normocytic anemia Anemia noted previous labs, hemoglobin ranging from 11-9.6. Denies shortness of breath. Denied alysia blood, hematemesis, melena and hematochezia. Plan - No acute intervention - Continue to monitor DVT Prophylaxis: Heparin ggt GI Prophylaxis: N/A Bowel: Senokot Diet: Cardiac Sosa: N/A Lines: Peripheral IV Antibiotics: Ceftriaxone (02/03--) Code Status: FULL Reason for Hospitalization: ACS workup Other Barriers to Discharge: Cardiac cath & Echo Patient plan of care was discussed with the senior resident Dr. Ragland and attending physician Dr. Obie Hawk, PGY1 Attending Provider Attestation/Addendum I Peri Ragland MD reviewed the note and agree with the resident's assessment & plan with modifications/additions/exceptions as below. I have personally reviewed labs, imaging, home meds/prior records, examined the patient, formulated and discussed management plan with the IM team. A 74-year-old female with history of HTN, DM presented to ED with chest discomfort, nausea, vomiting and noted to have atypical chest pain concerning for ACS and hypertensive emergency. Troponin mildly elevated though flat and EKG is nonischemic, CXR unremarkable. Patient has uncontrolled hypertension leading to hypertensive emergency with endorgan damage likely causing type II [place] however patient has significant risk factors and is moderate risk of having CAD. Cardiology is on board, plan for coronary angiogram tomorrow. Continue aspirin, statin, losartan, metoprolol, continue heparin drip. Obtain echocardiogram, aggressive electrolyte replacement, use IV hydralazine as needed for optimal blood pressure control. Leukocytosis has improved however UA did not reveal significant bacteriuria, continue Rocephin empirically. She also developed ILIANA overnight which is likely related to hypertensive emergency, start on maintenance IV fluid resuscitation, continue to monitor on telemetry overnight.
[2025-02-04] MEDS: RINGERS LACTATED 1000 ML 1,000 ML 125 ML IV ×2 (14:30→22:46)
[2025-02-04 16:18] LABS: Partial Thromboplastin Time 54.4 Seconds (22.0-36.0)
[2025-02-04] MEDS: HYDROcodone/APAP 5/325 TABLET 1 TAB PO (17:41)
[2025-02-04] MEDS: Heparin/D5w 25K 250 ML Ivpb 25,000 UNIT/250 ML BAG 13.704 UNIT IV (19:42)
[2025-02-04] MEDS: ATORVASTATIN CALCIUM 20 MG TABLET 80 MG PO (20:03)
[2025-02-04] MEDS: AMITRIPTYLINE HCL 25 MG TABLET PO (20:03)
[2025-02-05] VITALS (19 sets, daily range): BP systolic 109–160; BP diastolic 51–82; PULSE 54–78; RESP 14–24; TEMP 36.1–36.6; O2SAT 94–97
[2025-02-05 06:14] LABS: Basophils # (Auto) 0.1 Thou/mm3 (0.0-0.2); Basophils % (Auto) 1 % (0-2.5); Eosinophils # (Auto) 0.3 Thou/mm3 (0.0-0.5); Mean Corpuscular HGB Conc 31.5 g/dl (31.0-37.0); Mean Corpuscular Hemoglobin 30.5 pg (25.0-35.0); Mean Corpuscular Volume 97 fL (80-100); Monocytes # (Auto) 0.6 Thou/mm3 (0.0-0.8); Monocytes % (Auto) 9 % (0-12); Neutrophils % (Auto) 70 % (37-80); Nucleated Red Blood Cell # 0.00 Thou/mm3 (0.00-0.00); Nucleated Red Blood Cell % 0 /100 WBC (0)
[2025-02-05 06:16] LABS: Eosinophils % (Auto) 5 % (0-10); Hematocrit 26.7 % (36.0-46.0); Immature Granulocytes Auto 0.02 Thou/mm3 (0.00-0.00); Lymphocytes # (Auto) 1.0 Thou/mm3 (1.0-4.8); Lymphocytes % (Auto) 15 % (10-50); Neutrophils # (Auto) 4.7 Thou/mm3 (1.8-7.7); Platelet Count 292 Thou/mm3 (140-440); RDW Standard Deviation 47.8 fL (36.4-46.3); Red Blood Count 2.75 Miln/mm3 (4.00-5.20); White Blood Count 6.7 Thou/mm3 (3.6-11.0)
[2025-02-05 06:38] LABS: INR 1.0 (0.9-1.3); Partial Thromboplastin Time 70.3 Seconds (22.0-36.0); Prothrombin Time 10.9 Seconds (9.0-12.2)
--- NOTE | 2025-02-05 06:45 | PC.NURSE ---
Report with Celia NIEVES Pt not in room at this time; pt at r and d lab technician.
[2025-02-05 06:59] LABS: Hemoglobin 8.4 g/dL (12.0-16.0)
[2025-02-05 07:00] LABS: Alanine Aminotransferase < 7 U/L (10-49); Albumin, Serum 3.2 gm/dL (3.4-4.8); Albumin/Globulin Ratio 2.0 (1.2-2.2); Alkaline Phosphatase 55 U/L (46-116); Anion Gap 8 (7-16); Aspartate Amino Transferase < 10 U/L (0-34); BUN/Creatinine Ratio 17 Ratio (12-20); Bilirubin,Total < 0.2 mg/dL (0.3-1.2); Blood Urea Nitrogen 17 mg/dL (9-23); Calcium 9.0 mg/dL (8.3-10.6); Calcium (Corrected) 9.6 mg/dL (8.5-10.1); Carbon Dioxide 28.8 mMol/L (20.0-31.0); Chloride 103 mMol/L (98-107); Creatinine (Component) 1.0 mg/dL (0.6-1.3); Estimated Creatinine Clearance 58.1 mL/min (>60); Globulin 1.6 gm/dL (2.3-3.5); Glucose 107 mg/dL (74-106); Magnesium 1.8 mg/dL (1.6-2.6); Osmolality,Calculated 280 (275-295); Phosphorous 3.2 mg/dL (2.4-5.1); Potassium 4.4 mMol/L (3.4-5.1); Sodium 140 mMol/L (136-145); Total Protein 4.8 gm/dL (5.7-8.2); eGFR 59 See Note
[2025-02-05] MEDS: CLOPIDOGREL BISULFATE 75 MG TABLET PO (07:34)
[2025-02-05] MEDS: ASPIRIN EC 81 MG TABEC PO (07:34)
--- NOTE | 2025-02-05 07:45 | PD.RESPRO ---
Documentation for date of: 02/05/25 Exam Vital Signs Temp Pulse Resp BP Pulse Ox O2 Del Method O2 Flow Rate 97.5 F 66 19 134/68 H 96 Room Air 1 02/05/25 07:07 02/05/25 07:07 02/05/25 07:07 02/05/25 07:07 02/05/25 07:07 02/05/25 07:07 02/04/25 00:00 Objective Labs 02/05/25 05:14 02/05/25 05:14 Labs: Laboratory Results - last 24 hr 02/04/25 02/05/25 15:20 05:14 WBC 6.7 RBC 2.75 L Hgb 8.4 L Hct 26.7 L MCV 97 MCH 30.5 MCHC 31.5 RDW Std Deviation 47.8 H Plt Count 292 D Neut % (Auto) 70 Lymph % (Auto) 15 [place] % (Auto) 9 Eos % (Auto) 5 Baso % (Auto) 1 Neut # (Auto) 4.7 Lymph # (Auto) 1.0 [place] # (Auto) 0.6 Eos # (Auto) 0.3 Baso # (Auto) 0.1 Immature Gran # (Auto) 0.02 H Absolute Nucleated RBC 0.00 Immature Gran % 0 Nucleated RBC % 0 PT 10.9 INR 1.0 APTT 54.4 H D 70.3 H D Sodium 140 Potassium 4.4 D Chloride 103 Carbon Dioxide 28.8 Anion Gap 8 BUN 17 Creatinine 1.0 Estim Creat Clear Calc 58.1 L eGFR 59 L BUN/Creatinine Ratio 17 Glucose 107 H Calculated Osmolality 280 Calcium 9.0 Corrected Calcium 9.6 Phosphorus 3.2 Magnesium 1.8 Total Bilirubin < 0.2 L AST < 10 ALT < 7 L Alkaline Phosphatase 55 Total Protein 4.8 L Albumin 3.2 L Globulin 1.6 L Albumin/Globulin Ratio 2.0 Quality Measures Quality Measures none Assessment & Plan Assessment Current Active Medications: Generic Name Dose Route Start Last Admin Trade Name Freq PRN Reason Stop Dose Admin Acetaminophen 650 mg 02/03/25 03:25 Acetaminophen 325 Mg Tablet PO 03/05/25 03:24 Q6H PRN mild pain 1-3 or Fever >100.3 Hydrocodone Bitart/Acetaminophen 1 tab 02/03/25 03:25 02/04/25 17:41 Hydrocodone/Apap 5/325 Tablet PO 02/08/25 03:24 1 tab Q4HR PRN Administration PAIN SCALE 4-6 (Moderate Amitriptyline HCl 25 mg 02/03/25 21:00 02/04/25 20:03 Amitriptyline Hcl 25 Mg Tablet PO 03/05/25 20:59 25 mg QPM EVANS Administration Aspirin 81 mg 02/03/25 09:00 02/05/25 07:34 Aspirin Ec 81 Mg Tabec PO 03/05/25 08:59 81 mg QDAY EVANS Administration Atorvastatin Calcium 80 mg 02/03/25 03:35 02/04/25 20:03 Atorvastatin Calcium 20 Mg Tablet PO 03/05/25 03:34 80 mg HS EVANS Administration Clopidogrel Bisulfate 75 mg 02/04/25 09:00 02/05/25 07:34 Clopidogrel Bisulfate 75 Mg Tablet PO 03/06/25 08:59 75 mg QDAY EVANS Administration Hydralazine HCl 10 mg 02/03/25 10:08 02/03/25 10:59 Hydralazine Inj 20 Mg/Ml Vial IVP 03/05/25 10:14 10 mg Q6H PRN Administration SBP> 160, DBP > 90 Heparin Sodium/Dextrose 25,000 unit in 250 mls @ 10.003 mls/hr 02/03/25 02:15 02/05/25 06:45 Heparin In D5w Ivpb IV 02/17/25 02:14 0 units/kg/hr .Q24H EVANS 0 mls/hr Titration Protocol 10.81 UNITS/KG/HR Ceftriaxone Sodium/Dextrose 1 gm in 50 mls @ 100 mls/hr 02/03/25 17:15 02/04/25 08:48 Rocephin/D5w 1gm Iv Premix IV 02/10/25 17:14 100 mls/hr QDAY EVANS Administration Magnesium Sulfate 2 gm in 50 mls @ 25 mls/hr 02/05/25 12:00 Magnesium Sulfate Ivpb IV 02/05/25 13:59 X1 ONE Losartan Potassium 50 mg 02/04/25 09:00 02/04/25 08:46 Losartan Potassium 25 Mg Tablet PO 03/06/25 08:59 50 mg QDAY EVANS Administration Metoprolol Succinate 100 mg 02/03/25 09:00 02/04/25 08:47 Metoprolol Succinate Xl 25 Mg Tabcr PO 03/05/25 08:59 100 mg QDAY EVANS Administration Morphine Sulfate 2 mg 02/03/25 03:25 Morphine Sulf Inj 10 Mg/Ml Vial IVP 02/08/25 03:24 Q4HR PRN PAIN SCALE 7-10 (Severe Nitroglycerin 0.4 mg 02/02/25 23:17 02/03/25 01:06 Nitroglycerin 0.4 Mg Subl Btl #25 SL 0.4 1000units Q5MIN PRN Administration CHEST PAIN Ondansetron HCl 4 mg 02/03/25 03:25 02/03/25 09:44 Ondansetron Inj 2 Mg/Ml Inj 2 Ml IVP 03/05/25 03:24 4 mg Q6H PRN Administration NAUSEA OR VOMITING Protocol Sennosides 1 tab 02/03/25 09:00 02/04/25 08:48 Senna Tablet PO 03/05/25 08:59 1 tab QDAY EVANS Administration Protocol Tizanidine HCl 4 mg 02/03/25 21:00 02/04/25 20:03 Tizanidine Hcl 2 Mg Tablet PO 03/05/25 20:59 4 mg HS EVANS Administration
--- NOTE | 2025-02-05 09:33 | ESOP_ITS ---
RE: SUSSY LOCKHART : 1950 DATE OF OPERATION: 02/05/2025 PROCEDURES PERFORMED: 1. Diagnostic left heart cardiac catheterization, selective coronary angiogram, and left ventricular angiogram, CPT 60406. 2. Conscious sedation for 30-minute duration. 3. Ultrasound-guided access to the right radial artery. DIAGNOSES: Coronary artery disease. Acute [id number] elevation myocardial infarction. HISTORY AND INDICATIONS: The patient is a 74-year-old female with a past medical history of hypertension and hypercholesterolemia, who came to the hospital for severe substernal chest tightness, epigastric pain, nausea, and troponin elevation. EKG was unremarkable with nonspecific changes. Cardiac enzymes were persistently elevated. Hence, coronary angiogram was recommended to assess the patient has significant coronary artery disease that required intervention. DESCRIPTION OF PROCEDURE: The patient was brought to the cardiac catheterization laboratory. She was given 2 mg of Versed and 50 mcg of fentanyl for conscious sedation. The right radial approach was taken. Right radial artery was cannulated by micropuncture technique and a 6-[place] Glidesheath was introduced. Selective right and left coronary angiogram, left heart catheterization, and left ventricular angiogram were performed by a 5-[place] TIG 4 diagnostic catheter. The patient tolerated the procedure well with no complications. A radial cocktail was given prior to the procedure. Coronary angiogram showed following findings Right coronary artery is large and dominant, appears normal. PDA and PL branches are normal. Left coronary system: Left main coronary artery is normal. Left anterior descending artery is normal. Circumflex artery is normal. No evidence of significant obstructive coronary artery disease was detected. HEMODYNAMICS: Left ventricular pressure is 110/10 mmHg, EDP 12 mmHg, and aortic pressure 120/80 mmHg. No gradient across the aortic valve. Left ventricular angiogram showed normal left ventricular wall motion. Ejection fraction is 70%. SUMMARY OF FINDINGS AND SUGGESTIONS: 1. Normal nonobstructive epicardial coronary arteries. 2. Normal left ventricular function. RECOMMENDATIONS: The patient was reassured that no evidence of significant obstructive CAD causing myocardial infarction. The patient had type 2 troponin elevation. She was reassured about excellent prognosis. The patient can be discharged to home today. DT: 08:53:36 TT: 09:30:00 Ref: [id number] - TID: [id number] [facility]
--- NOTE | 2025-02-05 10:33 | PC.NURSE ---
1003- received report from Career Consultant from [facility] Left Heart Cath RT wrist Coband to be removed on 02/06/25 @1000am Tegaderm to be removed on 02/07/25 @1000 Pt results NEGATIVE. Anticoagulants including heparin gtt discontinued and she is cleared from cardiac stand point. Pt back to room @1027 No c/o pain Vitals: 96.9?F - 66-24-142/56 97%(RA)
[2025-02-05] MEDS: cefTRIAXone/D5w 1gm IV premix 1 GM/50 ML BAG IV (10:44)
[2025-02-05] MEDS: LOSARTAN POTASSIUM 25 MG TABLET 50 MG PO (10:46)
[2025-02-05] MEDS: Magnesium Sulfate 2 GM Ivpb 2 GM/50 ML BAG IV (11:54)
--- NOTE | 2025-02-05 15:10 | ESDS_ITS ---
<Statement entered by Peri Ragland MD - 02/05/25 17:54> I Peri Ragland MD reviewed the note and agree with the resident's assessment & plan with modifications/additions/exceptions as below. I have personally reviewed labs, imaging, home meds/prior records, examined the patient, formulated and discussed management plan with the IM team. A 74-year-old female with history of HTN, DM presented to ED with chest discomfort, nausea, vomiting and noted to have atypical chest pain concerning for ACS and hypertensive emergency. Cardiac catheterization revealed normal coronaries on 02/05/2025. Patient has uncontrolled hypertension leading to hypertensive emergency with endorgan damage likely causing type II AL. Discontinue heparin drip, aspirin and Plavix, continue statin, losartan, will change metoprolol to Coreg 12.5 mg twice daily. Echocardiogram can be obtained in outpatient settings, Leukocytosis has improved however UA did not reveal significant bacteriuria, will change antibiotic to cefpodoxime. ILIANA has been improved. Planned Discharge Date 02/05/25 DS: Providers Provider Date of admission: 02/03/25 03:25 Primary care physician: Rosalino Fernando MD Admitting Provider: Dylan Kaye MD Attending Provider on Admission: Peri Ragland MD Consults: 02/03/25 03:38 Consult to Cardiology Routine Comment: Consulting Provider: Argelia Cummins Instructions: [facility] HTN HLD CC: Chest pain/NSTEMI 02/03/25 07:19 Referral Registered Dietitian Routine Comment: 02/05/25 07:36 Referral Physical Therapy Routine Comment: Physician Instructions: Attending Provider on DC: Dr.Muhammad Georgina Ragland MD Discharging Provider: Dr. Peri Ragland MD Anticipated date of discharge: 02/05/25 DS: Diagnosis Problem List Completed Was Problem List Reviewed/Reconciled?: Yes Hospital Course Hospital Course Hospital course: Summary 74-year-old female past med history significant for hypertension, hyperlipidemia, GERD, presents to the [facility] ED on 02/02/2025 with with pressure-like chest pain and nausea. Admitted for ACS work up. Patient troponin where uptrending, EKG showed no ST elevation, nonspecific changes. Chest x-ray showed no acute disease. Cardiology was consulted patient was started on an aspirin bolus, plavix and heparin drip. Patient chest pain clinically improved, troponin downtrended. Per cardiology recommendation on 02/05/25, coronary angiogram showed normal nonobstructive epicardial coronary arteries, normal ventricular function, and ejection fraction of 70%. Along with the intermittent chest pain patient also had hypertensive emergency with blood pressure averaging in 190/96. For which over the course of hospitalization noted downtrending blood pressure after administration of hydralazine and metoprolol. Patient denies any complaint of double vision, dizziness, headache, nausea, vomiting. Pt also had asymptomatic bacteriuria evidence on urine analysis for which was manage with ceftriaxone. Throughout the hospital course patient other problems were managed and her condition improved remarkably with progression of hospital course. Further plan to discharge the patient home with antibiotics course since she is hemodynamically stable to be discharged home to self care with the following instructions. Discharge recommendation: -Complete antibiotic treatment with Cefpodoxime -STOP METOPROLOL, take coreg twice a day for high blood pressure -Continue all other medications as below -Follow up with PCP in 1-2 weeks -Follow up with Cardiology Dr. Cummins outpatient in 1 week and obtain Echocardiogram. -Return to ED if symptoms worsen If you don't have a PCP, you can make an appointment at the [facility]: [address] [place] [address] Hospital Diagnoses: #Acute chest pain 2/2 ACS #NSTEMI type I versus type II #High troponin #Hypertensive emergency # History of primary hypertension #Hyperlipidemia #Leukocytosis likely 2/2 Urinary tract infection #Acute kidney injury, likely prerenal #Headaches #Normocytic anemia Patient seen and assessed under supervision of attending physician Dr. Ragland and discuss with senior resident PGY-2 Kiara Smith MD PGY-1, Internal Medicine Time Spent with Patient Time attestation: Total time spent providing and/or coordinating discharge services: Time spent: Greater than 30 minutes Exam Vital Signs Temp Pulse Resp BP Pulse Ox O2 Del Method O2 Flow Rate 97.1 F 73 18 137/62 H 97 Room Air 1 02/05/25 11:50 02/05/25 11:50 02/05/25 11:50 02/05/25 11:50 02/05/25 11:50 02/05/25 11:50 02/04/25 00:00 Narrative Exam Physical Exam General: Awake and in no acute distress. Conversational and non-toxic appearing. HEENT: Normocephalic, atraumatic, mucous membranes moist. Heart: Regular rate and rhythm, normal S1 and S2, no murmurs. Lungs: Clear to auscultation with no wheezing or crackles. Abdomen: Soft, nondistended, nontender, positive bowel sounds. ?No guarding or rebound tenderness. Neurologic: Alert and oriented x3, no gross neurological deficit, and patient able to move all 4 extremities. Extremities: No edema. Skin: No rash or ecchymoses. Discharge Plan Plan Patient Disposition: HOME (Self Care) Patient condition on transfer: Stable Care Plan Goals: -Complete antibiotic treatment with Cefpodoxime for 5 more days -STOP METOPROLOL, take Coreg twice a day for high blood pressure -Continue all other medications as below -Follow up with PCP in 1-2 weeks -Follow up with Cardiology in 1 week and obtain Echocardiogram. -Return to ED if symptoms worsen Prescriptions/Referrals Prescriptions/Med Rec: New carvedilol [Coreg] 12.5 mg tablet 12.5 mg PO BID 30 Days Qty: 60 0RF Rx Instructions: must administer with a meal/food cefpodoxime 100 mg tablet 100 mg PO BID 5 Days Qty: 10 0RF Rx Instructions: must administer with a meal/food Continued famotidine [Pepcid] 20 MG tablet 20 mg PO BID Qty: 0 Patient Comments: TO SUPPRESS GASTRIC ACID SECRETION hydrochlorothiazide 25 MG tablet 25 mg PO QAM Qty: 0 amitriptyline 25 mg tablet 25 mg PO QPM Patient Comments: TAKE 1 TABLET BY MOUTH AT BEDTIME terbinafine HCl 250 mg tablet 250 mg PO QDAY Patient Comments: TAKE 1 TABLET (250 MG) BY ORAL ROUTE ONCE DAILY FOR FUNGAL NAILS tizanidine 4 mg tablet 4 mg PO HS Patient Comments: TAKE 1 TABLET BY MOUTH NIGHTLY FOR MUSCLE PAIN/ SPASM simvastatin 10 mg tablet 10 mg PO QDAY Patient Comments: TAKE 1 TABLET BY MOUTH EVERY DAY IN THE EVENING ibuprofen 800 mg tablet 800 mg PO Q8HR PRN (Reason: pain) Patient Comments: TAKE 1 TABLET BY MOUTH EVERY 8 HOURS WITH FOOD AND WATER NEEDED FOR MODERATE PAIN OR HIGH FEVER fluticasone propionate 50 mcg/actuation spray,suspension 2 spray INTRANASAL QDAY Patient Comments: SPRAY 2 SPRAYS INTO EACH NOSTRIL EVERY DAY losartan 50 mg tablet 50 mg PO QDAY Patient Comments: TAKE 1 TABLET BY MOUTH ONCE DAILY FOR HIGH BLOOD PRESSURE Discontinued metoprolol succinate [Toprol XL] 100 MG tablet extended release 24 hr 100 mg PO QDAY Qty: 0 simvastatin [Zocor] 40 MG tablet 20 mg PO HS Qty: 0 Referrals: Rosalino Fernando MD [Primary Care Provider] - Argelia Cummins MD [Physician] - Patient/Caregiver Discharge Instructions Discharge Activity: activity as tolerated Education Materials: Controlling High Blood Pressure, Blood Pressure Check Steps Print Language: Irish Stand Alone Forms: Sunita Award Info., Patient Portal Info Letter Discharge Order Discharge Orders: Discharge (Routine); Ordered 02/05/25 Ordered By: Chandu Carlos Quality Discharge Quality Measures VTE prophylaxis
--- NOTE | 2025-02-05 16:29 | PC.NURSE ---
Pt with discharge orders, however patient does not have an available ride until about [id number]. Charge Kami NIEVES made aware
[2025-02-05] MEDS: HYDROcodone/APAP 5/325 TABLET 1 TAB PO (16:33)
== END 2025-02-05 18:03 | disposition home or self-care (01) | DRG 281 ==
LOC: SERX 02-03 04:54 → SERHOLD 02-03 05:03 → S2NX 02-03 06:19
PROVIDERS: Internal Medicine Cardiovascular Disease; Physician Assistant; Admitting Provider Internal Medicine; Emergency Provider Emergency Medicine; PCP Family Medicine; Visit Provider Student in an Organized Health Care Education/Training Program
DX: I21.4 Non-ST elevation (NSTEMI) myocardial infarction (principal); I16.1 Hypertensive emergency; N17.9 Acute kidney failure, unspecified; N39.0 Urinary tract infection, site not specified; I10 Essential (primary) hypertension; E78.00 Pure hypercholesterolemia, unspecified; K21.9 Gastro-esophageal reflux disease without esophagitis; D64.89 Other specified anemias; E83.52 Hypercalcemia; E11.9 Type 2 diabetes mellitus without complications; R51.9 Headache, unspecified; I25.10 Atherosclerotic heart disease of native coronary artery without angina pectoris; Z79.02 Long term (current) use of antithrombotics/antiplatelets; Z79.82 Long term (current) use of aspirin; Z79.899 Other long term (current) drug therapy; Z88.8 Allergy status to other drugs, medicaments and biological substances; Z88.0 Allergy status to penicillin
CPT/HCPCS: 36415; 71045; 80053; 80061; 80307; 80320; 81001; 83036; 83735; 83880; 84100; 84443; 84484; 85025; 85610; 85730; 87811; 93005; 96361; 96365; 96366; 96375; 96376; 99152; 99284; A4649; C1769; C1887; C1894; J0168; J0360; J0461; J0696; J1643; J1644; J2250; J2270; J2312; J2371; J2405; J3010; J3475; J3490; J7030; J7120; Q9967; A9270; G0480

== ENCOUNTER → 2025-02-26 | Outpatient (CLI) | payer MEDICARE, SELFPAY ==
[2025-02-26 10:42] LABS: Basophils # (Auto) 0.0 Thou/mm3 (0.0-0.2); Basophils % (Auto) 1 % (0-2.5); Eosinophils # (Auto) 0.3 Thou/mm3 (0.0-0.5); Eosinophils % (Auto) 5 % (0-10); Hematocrit 28.3 % (36.0-46.0); Immature Granulocytes Auto 0.02 Thou/mm3 (0.00-0.00); Lymphocytes # (Auto) 0.9 Thou/mm3 (1.0-4.8); Lymphocytes % (Auto) 13 % (10-50); Mean Corpuscular HGB Conc 30.7 g/dl (31.0-37.0); Mean Corpuscular Hemoglobin 30.5 pg (25.0-35.0); Mean Corpuscular Volume 99 fL (80-100); Monocytes # (Auto) 0.5 Thou/mm3 (0.0-0.8); Monocytes % (Auto) 7 % (0-12); Neutrophils # (Auto) 4.7 Thou/mm3 (1.8-7.7); Neutrophils % (Auto) 74 % (37-80); Nucleated Red Blood Cell # 0.00 Thou/mm3 (0.00-0.00); Nucleated Red Blood Cell % 0 /100 WBC (0); Platelet Count 346 Thou/mm3 (140-440); RDW Standard Deviation 53.7 fL (36.4-46.3); Red Blood Count 2.85 Miln/mm3 (4.00-5.20); White Blood Count 6.4 Thou/mm3 (3.6-11.0)
[2025-02-26 10:46] LABS: Glucose Estimated Average 114 mg/dL (80-131); Hemoglobin A1C 5.6 % Hgb (4.8-6.0)
[2025-02-26 10:53] LABS: Hemoglobin 8.7 g/dL (12.0-16.0)
[2025-02-26 11:24] LABS: Carbon Dioxide 30.6 mMol/L (20.0-31.0); Chloride 104 mMol/L (98-107); Potassium 4.5 mMol/L (3.4-5.1); Sodium 144 mMol/L (136-145)
[2025-02-26 11:25] LABS: Alanine Aminotransferase 28 U/L (10-49); Albumin, Serum 3.7 gm/dL (3.4-4.8); Albumin/Globulin Ratio 2.3 (1.2-2.2); Alkaline Phosphatase 91 U/L (46-116); Anion Gap 9 (7-16); Aspartate Amino Transferase 15 U/L (0-34); BUN/Creatinine Ratio 14 Ratio (12-20); Bilirubin,Total 0.2 mg/dL (0.3-1.2); Blood Urea Nitrogen 14 mg/dL (9-23); Calcium 9.5 mg/dL (8.3-10.6); Calcium (Corrected) 9.7 mg/dL (8.5-10.1); Cardiac Risk Estimate 3.2 RATIO (3.7-5.6); Cholesterol 148 mg/dL (132-200); Creatinine (Component) 1.0 mg/dL (0.6-1.3); Globulin 1.6 gm/dL (2.3-3.5); Glucose 94 mg/dL (74-106); HDL Cholesterol 46 mg/dL (40-60); LDL Cholesterol,Calculated 70 mg/dL (0-130); Osmolality,Calculated 287 (275-295); Total Protein 5.3 gm/dL (5.7-8.2); Triglycerides 158 mg/dL (30-150); eGFR 59 See Note
== END | disposition home or self-care (01) ==
LOC: COPL 09:45
PROVIDERS: PCP Family Medicine; Referring Provider Orthopaedic Surgery; Visit Provider Orthopaedic Surgery
DX: E11.69 Type 2 diabetes mellitus with other specified complication (principal); E78.2 Mixed hyperlipidemia; I10 Essential (primary) hypertension; M25.562 Pain in left knee; S83.242A Other tear of medial meniscus, current injury, left knee, initial encounter; X58.XXXA Exposure to other specified factors, initial encounter
CPT/HCPCS: 36415; 80053; 80061; 83036; 85025

== ENCOUNTER → 2025-03-14 | Outpatient (CLI) | payer MEDICARE, SELFPAY ==
--- NOTE | 2025-03-14 10:13 | XR_ITS ---
Examination: Hand, left 3 views Technique: Hand AP, oblique, lateral 3 views Date and time of exam: March 14, 2025, 1024 hours INDICATIONS: Injury to the hand 6 weeks ago with middle finger pain FINDINGS: Significant osteopenia No acute fracture No dislocation IMPRESSION: No acute fracture
== END | disposition home or self-care (01) ==
LOC: CDIM 10:07
PROVIDERS: PCP Family Medicine; Referring Provider Nurse Practitioner Gerontology; Visit Provider Nurse Practitioner Gerontology
DX: M79.642 Pain in left hand (principal); S69.92XS Unspecified injury of left wrist, hand and finger(s), sequela; X58.XXXS Exposure to other specified factors, sequela
CPT/HCPCS: 73130